=== PATIENT | male | born 1960 | race Caucasian/White ===

== ENCOUNTER 2020-11-15 12:46 | Emergency (ER) | payer OTHER, SELFPAY ==
--- NOTE | ~2020-11-15 | XR_ITS ---
EXAMINATION: XR KNEE, RIGHT CLINICAL INFORMATION: Injury. Pain. COMPARISON: Previous x-ray July 2015 TECHNIQUE: Four views of the right knee. FINDINGS: Bones and soft tissues are normal. No fracture or joint effusion. Alignment is anatomic. Joint spaces are well maintained. No abnormal soft tissue calcification. XR/XR knee RT 4V IMPRESSION: Normal right knee.
[2020-11-15 14:37] VITALS: BP 161/84; PULSE 60; RESP 18; TEMP 37.1; O2SAT 96; BMI 34.0
--- NOTE | 2020-11-15 15:26 | ED.LOWEXIN ---
HPI - Extremity Injury (Lower) General Chief Complaint: Extremity Injury, Lower Stated Complaint: rt knee pain,inj Time Seen by Provider: 11/15/20 14:47 Source: patient Mode of arrival: ambulatory Limitations: no limitations History of Present Illness HPI Narrative: 60yo male with past medical history of arthritis, gout, HTN here with complaints of right knee pain s/p injury one week ago while using stationary bike. patient tells me after he got off the bike he started to have pain over the inner side of his knee which is worsened with weight-bearing and standing on his feet for a long period of time. No previous injury. Tells me does have arthritis the same knee. No erythema, warmth, swelling, fevers or chills. Related Data Allergies Allergy/AdvReac Type Severity Reaction Status Date / Time No Known Allergies Allergy Mild NOT Verified 11/15/20 14:36 APPLICABLE Review of Systems Review of Systems: Yes all other systems are reviewed and are negative Constitutional: Constitutional: Reports no additional constitutional complaints, Denies body ache(s), Denies chills, Denies fever(s), Denies headache(s) and Denies weakness Eyes: Eyes: Reports no additional eye complaints and Denies change in vision ENT: Reports system reviewed and no additional complaints, except as documented, Denies dizziness, Denies headache(s), Denies nasal congestion, Denies nasal discharge and Denies neck pain Cardiovascular: Cardiovascular: Reports no additional cardiovascular complaints, Denies chest pain, Denies leg edema and Denies dyspnea Respiratory: Respiratory: Reports no additional respiratory complaints, Denies cough and Denies dyspnea Gastrointestinal: Gastrointestinal: Reports no additional gastrointestinal complaints, Denies abdominal pain, Denies diarrhea, Denies nausea and Denies vomiting Genitourinary: Genitourinary: Denies urinary incontinence Musculoskeletal: Musculoskeletal: Reports no additional musculoskeletal complaints, Denies back pain, Reports arthralgias, Denies neck pain, Denies numbness and Denies tingling Integumentary/Breasts: Skin/Breast: Reports system reviewed and no additional complaints, except as docu and Denies rash Neurologic: Reports system reviewed and no additional complaints, except as documented, Denies Abnormal speech present, Denies dizziness, Denies headache(s), Denies numbness, Denies tingling and Denies weakness [facility] Past Medical History Attestation statement: The following information was validated with the patient. Source: old records reviewed and nursing notes reviewed Medical History Arthritis Gout HTN (hypertension) Social History Social History Advance Directives: No Advance Directives Information Provided: No Physical Exam Vital Signs: Vital Signs: Last Vital Signs Temp 98.7 F 11/15/20 14:37 Pulse 60 11/15/20 14:37 Resp 18 11/15/20 14:37 BP 161/84 H 11/15/20 14:37 Pulse Ox 96 11/15/20 14:37 Body Mass Index 34.0 Const: General: cooperative, healthy appearing, comfortable and no acute distress Orientation/consciousness: patient oriented x3 Limitations: no limitations HENMT: Head: Yes normal to inspection Ears: hearing grossly normal bilaterally General nose exam: Normal external nose present Face and sinus: Yes normal facial exam Mouth: Normal oral and palatal mucosa present Throat: Yes posterior oropharynx normal Eyes: General: appearance normal, both eyes and all related structures Pupils: Equal, round and reactive pupils present Neck: Neck: Yes normal visual inspection Chest: Chest palpation & inspection: normal inspection of the chest Resp: Effort & Inspection: normal respiratory effort Auscultation: clear to auscultation bilaterally Cardio: Rate: regular rate Rhythm: regular rhythm Peripheral pulses: Peripheral pulses 2+ throughout GI: Inspection: Yes normal to inspection Palpation (GI): Soft to palpation and nontender Auscultation: normal bowel sounds Back/Spine/Pelvis: Thoracic/Lumbar Spine: thoracic and lumbar spine normal to inspection Skin: General skin exam: no rashes or lesions noted Neuro: General: patient oriented x3, no focal motor deficits and normal sensation to monofilament Cranial nerves: Yes Equal, round and reactive pupils present Cognition (Neuro): normal cognition Speech: No Abnormal speech present Gait exam (Neuro): Normal gait present Motor exam (neuro): 5/5 motor strength present throughout Extrem: Other: Tenderness over the MCL and joint line. Pain with flexion but able to complete. No problem with full extension. No warmth, erythema or swelling. Pain with valgus stress over the MCL NV intact distally. General: Yes normal to inspection Course Course Course Narrative: 60 yo male here with right knee pain s/p injury on stationary bike. Tenderness of MCL and joint line. Likely MCL sprain. Xrays negative for bony abnormality. Placed in knee immobilizer and given crutches with teaching. Will refer to ortho. Reviewed worrisome signs and symptoms of when to return to the emergency department. Comfortable discharge home. Procedures Procedure Narrative Procedure Narrative: knee immobolizer/crutches given MDM - Extremity Injury (Lower) Medical Records Attestation: I reviewed the patient's medical records. Lab Data Attestation: I reviewed the patient's lab results. Imaging Data knee xray: Attestation: I personally reviewed and interpreted this imaging study as follows: Radiologist's impression: EXAMINATION: XR KNEE, RIGHT CLINICAL INFORMATION: Injury. Pain. COMPARISON: Previous x-ray July 2015 TECHNIQUE: Four views of the right knee. FINDINGS: Bones and soft tissues are normal. No fracture or joint effusion. Alignment is anatomic. Joint spaces are well maintained. No abnormal soft tissue calcification. XR/XR knee RT 4V IMPRESSION: Normal right knee. Discharge Plan Discharge Clinical Impression: Knee sprain Qualifiers: Encounter type: initial encounter Involved ligament of knee: medial collateral ligament Laterality: right Qualified Code(s): S83.411A - Sprain of medial collateral ligament of right knee, initial encounter Patient Disposition: Home, Self-Care Instructions: Knee Sprain (ED) Additional Instructions: Take naproxen or motrin twice daily as discussed Ice, elevation, compression as discussed. Limit weight bearing Follow-up with orthopedics as discussed Referrals: Luis Medina MD [Physician] - 2 days Stand Alone Forms: Work/School Release Interventions: ED Discharge Assessment Last Done: 11/15/20 15:34 Discharge Date/Time: 11/15/20 15:43
== END 2020-11-15 15:43 | disposition home or self-care (01) ==
PROVIDERS: Emergency Provider Emergency Medicine; PCP Physician Assistant
DX: S83.411A Sprain of medial collateral ligament of right knee, initial encounter (principal); X50.3XXA Overexertion from repetitive movements, initial encounter; I10 Essential (primary) hypertension; Y93.A1 Activity, exercise machines primarily for cardiorespiratory conditioning; Y92.019 Unspecified place in single-family (private) house as the place of occurrence of the external cause; Y99.8 Other external cause status
CPT/HCPCS: 73564; 99283

== ENCOUNTER → 2020-11-30 08:00 | Outpatient (BNVA) | payer OTHER, SELFPAY | PROVIDERS: PCP Physician Assistant; Visit Provider Orthopaedic Surgery | DX: S83.241A Other tear of medial meniscus, current injury, right knee, initial encounter (principal) | CPT/HCPCS: 99202 ==

== ENCOUNTER 2023-12-06 15:48 | Emergency (ER) | payer OTHER, SELFPAY ==
--- NOTE | ~2023-12-06 | US_ITS ---
EXAMINATION: US VENOUS ULTRASOUND WITH DOPPLER LOWER EXTREMITY, RIGHT CLINICAL INFORMATION: Edema, pain. COMPARISON: None available. TECHNIQUE: Ultrasound of the deep veins is performed from the hip to the calf with compression sonography and color and pulse Doppler assessment. Spectral analysis with color-flow imaging is performed. FINDINGS: There is normal venous compression and respiratory variation and augmented flow. The visualized common femoral vein, superficial femoral vein, profunda femoral vein, popliteal vein, and the trifurcation region shows no evidence of deep venous thrombosis. There is a 8.2 x 1.8 x 3.1 cm Macias's cyst. If the patient's symptoms persist, followup ultrasound in 5 days 7 days might be of value to exclude proximal propagation from a non-visualized calf vein. US/US venous duplex LE RT IMPRESSION: 1. No DVT demonstrated in the right lower extremity. 2. There is a 8.2 cm Macias's cyst.
[2023-12-06 16:22] LABS: MANUAL DIFF FLAG NO
[2023-12-06 16:24] LABS: Basophils Absolute Auto 0.1 X10*3/uL (0.0-0.2); Basophils Percent Auto 0.4 % (0-2); Eosinophils Absolute Auto 0.1 X10*3/uL (0.0-0.4); Eosinophils Percent Auto 0.6 % (0-4); Hematocrit 50.7 % (42.0-52.0); Hemoglobin 17.4 g/dl (14.0-18.0); Imm Gran Abs Auto 0.05 X10*3/uL (0.00-0.03); Imm Gran Pct Auto 0.4 % (0.0-0.4); Lymphocytes Absolute Auto 1.3 X10*3/uL (1.2-4.9); Lymphocytes Percent Auto 10.5 % (20-40); Mean Corpuscular HGB Conc 34.3 g/dl (31.0-36.0); Mean Corpuscular Hemoglobin 30.9 pg (27.0-33.0); Mean Corpuscular Volume 89.9 fL (80.0-98.0); Mean Platelet Volume 10.1 fL (9.4-12.4); Monocytes Absolute Auto 0.9 X10*3/uL (0.1-1.2); Monocytes Percent Auto 7.5 % (2-11); Neutrophils Percent Auto 80.6 % (45-73); Platelet Count 218 X10*3/uL (160-400); Red Blood Count 5.64 X10*6/uL (4.60-5.80); Red Cell Distribution Width 13.1 % (11.0-16.0); White Blood Count 12.5 X10*3/uL (4.8-10.8)
[2023-12-06 16:32] LABS: Prothrombin Time 12.6 SEC (11.1-13.3)
[2023-12-06 16:34] VITALS: BP 178/84; PULSE 90; RESP 16; TEMP 37.6; O2SAT 94; BMI 35.7
[2023-12-06 16:37] LABS: Alanine Aminotransferase 22 U/L (0-40); Albumin Level 4.1 g/dL (3.5-5.0); Alkaline Phosphatase 79 U/L (39-117); Anion Gap 15 (12-20); Aspartate Amino Transferase 20 U/L (5-37); Bilirubin Total 0.6 mg/dL (0.0-1.0); Blood Urea Nitrogen 19 mg/dL (9-16); Calcium 9.5 mg/dL (8.4-10.2); Carbon Dioxide 21 mmol/L (22-29); Chloride 107 mmol/L (96-108); Estimated Glomerular Filt Rate 51; Glucose Random 148 mg/dL (60-115); Magnesium 1.8 mg/dL (1.6-2.6); Potassium 4.2 mmol/L (3.3-5.1); Sodium 139 mmol/L (135-145); Total Protein 7.5 g/dL (6.5-8.0)
--- NOTE | 2023-12-06 16:40 | ED_ITS ---
HPI - Extremity Problem General Chief complaint: Extremity Problem Stated complaint: right leg swelling Time Seen by Provider: 12/06/23 18:09 Source: patient Mode of arrival: ambulatory Limitations: no limitations History of Present Illness HPI Narrative: 63-year-old male presents to the ER for evaluation of right lower extremity swelling for the last couple of days. He states he was on his feet for several hours for pureed this weekend but does not recall falling or injuring the leg. He noticed some swelling in the right ankle a couple of days ago which has gotten worse, now extends up to the right calf and behind the right knee. He reports pain in the right lateral knee. He has soreness behind the knee. No redness or warmth to the lower extremity. No chest pain or shortness of breath. MD Complaint: extremity pain and extremity swelling Onset (ago): day(s) Pain Consistency: intermittent Location: right and lower extremity Severity scale (1-10): 5 Quality: aching Radiation: proximal Relieving factors: immobilization and rest Exacerbating factors: walking and palpation Associated symptoms: denies other symptoms Related Data Allergies Allergy/AdvReac Type Severity Reaction Status Date / Time No Known Allergies Allergy Mild NOT Verified 12/06/23 16:34 APPLICABLE Review of Systems 2 Review of Systems: Yes all other systems are reviewed and are negative [facility] Past Medical History Medical History Arthritis Gout HTN (hypertension) Social History Social History (Updated 11/30/20 @ 08:12 by Mag Jj, [facility]) Advance Directives: No Advance Directives Information Provided: No Current occupational status: employed Current occupation: [employer] in [employer] Physical Exam 2 Vital Signs: Vital Signs: Last Vital Signs Temp 99.6 F 12/06/23 16:34 Pulse 90 12/06/23 16:34 Resp 16 12/06/23 16:34 BP 178/84 H 12/06/23 16:34 Pulse Ox 94 12/06/23 16:34 O2 Del Method Room Air 12/06/23 16:34 BMI result Body Mass Index 35.7 Appearance: Alert. Oriented X3. No acute distress. HEENT: normal inspection CVS: Normal heart rate and rhythm. Pulses normal. Respiratory: No respiratory distress. Skin: Skin warm and dry. Normal skin color. Normal skin turgor. No rashes. Extremities: Right distal leg with mild lower extremity nonpitting edema involving the ankle to the posterior knee. There is soft tissue tenderness and palpable mass in the popliteal area of the right lower extremity. Normal range of motion of the knee with some tenderness along the lateral joint line. neurovascularly intact distally. No erythema, warmth of the right lower extremity Neuro: Oriented X 3. No motor deficit. No sensory deficit. Steady gait Course Course Course Narrative: This is an RME: Additional HPI, ROS, PE not included below will be deferred to primary provider. 63-year-old male presents with right lower extremity pain, swelling, warmth started 2 days ago worsening. No associated trauma. No history of clots. Not on blood thinners. Plan labs, imaging Medical Decision Making Medical Decision Making [facility] Narrative: 63-year-old male presents to the ER for evaluation of right lower extremity swelling for the last couple of days. He states he was on his feet for several hours for pureed this weekend but does not recall falling or injuring the leg. labs today show a mild leukocytosis of 12.5, which seems to be chronic dating back to 2018. No evidence of acute infection. Ultrasound did not show any evidence of deep vein thrombosis but showed a large Macias's cyst measuring 8 cm. Results discussed with the patient as well as conservative management. Patient placed in Bruno wrap for compression and support. He is stable for discharge home with outpatient follow-up as needed. Differential Diagnosis Differential Diagnoses: The differential diagnosis associated with the presentation includes DVT, PVD, macias's cyst, CHF, muscle injury Lab Data [facility] Lab Attestation statement: I reviewed the patient's lab results. Stable CKD 12/06/23 16:15 12/06/23 16:15 Labs: Lab Results 12/06/23 Range/Units 16:15 WBC 12.5 H (4.8-10.8) X10*3/uL RBC 5.64 (4.60-5.80) X10*6/uL Hgb 17.4 (14.0-18.0) g/dl Hct 50.7 (42.0-52.0) % MCV 89.9 (80.0-98.0) fL MCH 30.9 (27.0-33.0) pg MCHC 34.3 (31.0-36.0) g/dl RDW 13.1 (11.0-16.0) % Plt Count 218 (160-400) X10*3/uL MPV 10.1 (9.4-12.4) fL Immature Gran % (Auto) 0.4 (0.0-0.4) % Neut % (Auto) 80.6 H (45-73) % Lymph % (Auto) 10.5 L (20-40) % Alpine % (Auto) 7.5 (2-11) % Eos % (Auto) 0.6 (0-4) % Baso % (Auto) 0.4 (0-2) % Lymph # (Auto) 1.3 (1.2-4.9) X10*3/uL Alpine # (Auto) 0.9 (0.1-1.2) X10*3/uL Eos # (Auto) 0.1 (0.0-0.4) X10*3/uL Baso # (Auto) 0.1 (0.0-0.2) X10*3/uL Abs Immat Gran (auto) 0.05 H (0.00-0.03) X10*3/uL Absolute Neuts (auto) 10.0 H (2.0-8.3) x10*3/uL Absolute Nucleated RBC 0.000 (0.0-0.012) X10*3/uL Nucleated RBC % (auto) 0.0 (0.0-0.2) /100WBC PT 12.6 (11.1-13.3) SEC INR 1.0 (0.9-1.1) Sodium 139 (135-145) mmol/L Potassium 4.2 (3.3-5.1) mmol/L Chloride 107 (96-108) mmol/L Carbon Dioxide 21 L (22-29) mmol/L Anion Gap 15 (12-20) BUN 19 H (9-16) mg/dL Creatinine 1.41 H (0.5-1.4) mg/dL Estim Creat Clear Calc TNP Estimated GFR 51 Random Glucose 148 H (60-115) mg/dL Calcium 9.5 (8.4-10.2) mg/dL Magnesium 1.8 (1.6-2.6) mg/dL Total Bilirubin 0.6 (0.0-1.0) mg/dL AST 20 (5-37) U/L ALT 22 (0-40) U/L Alkaline Phosphatase 79 (39-117) U/L Total Protein 7.5 (6.5-8.0) g/dL Albumin 4.1 (3.5-5.0) g/dL Independent Interpretation I performed an independent interpretation of an: Ultrasound Interpretation: large fluid collection consistent with a Macias's cyst noted, agree with radiologist's read Radiology Impression Discussion of test interpretation with radiology: I have reviewed the radiologist's reading. Radiologist Impression: US/US venous duplex LE RT IMPRESSION: 1. No DVT demonstrated in the right lower extremity. 2. There is a 8.2 cm Macias's cyst. External Record Review External record reviewed: Outpatient record and Prior outpatient radiology Prescription Management I considered prescription management with: Pain Medication Chronic Conditions Patient?s care impacted by: Other (ckd) cannot use nsaid Critical Care Time Critical Care Time Critical Care Time: No Discharge Plan Discharge Clinical Impression: Macias cyst Qualifiers: Laterality: right Qualified Code(s): M71.21 - Synovial cyst of popliteal space [Maicas], right knee Patient Disposition: Home, Self-Care Instructions: Bakers Cyst (ED) Additional Instructions: Your ultrasound today showed a large Macias's cyst Wear the BRUNO wrap for compression and support Elevate your leg when possible Take over the counter acetaminophen as needed for pain Follow up with your doctor If you develop new or worsening symptoms call 911 or come back to the ER for further evaluation. Referrals: Fransisco Mendez PA [Primary Care Provider] -
[2023-12-06 18:53] VITALS: BP 179/100; PULSE 99; RESP 20; TEMP 37.2; O2SAT 95
== END 2023-12-06 18:54 | disposition home or self-care (01) ==
PROVIDERS: Physician Assistant; Emergency Provider Emergency Medicine; PCP Physician Assistant
DX: M71.21 Synovial cyst of popliteal space [Baker], right knee (principal); R60.0 Localized edema; Z79.899 Other long term (current) drug therapy
CPT/HCPCS: 36415; 80053; 83735; 85025; 85610; 93971; 99282; 99284

== ENCOUNTER 2025-05-22 07:20 | Day surgery (SDC) | payer OTHER, SELFPAY ==
--- OUTSIDE RECORDS SUMMARY | 2025-01-16 07:56 | XMS_ITS | Encounter Summary ---
Author Name [facility] Address [address] [place] [address] Care Team Providers Care Outside Machinist Supervisor Name Role Phone SABINA MAJOR Primary Care Provider Unavailabl e Insurance Providers: All historical and current Section Date Range: From patient's date of to the date document was created. This section includes the names of all active insurance providers for the patient. Insurance Provider Type of Coverage Plan Name Start of Policy Coverage End of Policy Coverage Group Number Member ID Insurance Provider's Telephone Number Policy Suero's Name Patient's Relationship to Policy Suero [facility] Sep 17, 2023 01 [id number] RAIZA BURCH PATIENT Selected Encounter This section includes the information on record at [place] for the Encounter. Date/Time Encounter Type Encounter Description Reason Provider Source Oct 21, 2024 03:30 PM OFFICE O/P EST MOD 30 MIN PRIMARY CARE/MEDICINE ICD-10-CM J01.10 Acute frontal sinusitis, unspecified SABINA MAJOR Phil Encounter Template Text not used by [place] Assessments - Encounter Diagnoses This section includes the primary and secondary diagnoses documented for the Encounter. Date/Time Primary/Secondary Diagnosis Diagnosis Name Provider Source Nov 22, 2024 05:38 PM PRIMARY Acute frontal sinusitis, unspecified SABINA MAJOR Nov 22, 2024 05:38 PM SECONDARY Essential (primary) hypertension SABINA MAJOR Nov 22, 2024 05:38 PM SECONDARY Obesity, unspecified SABINA MAJOR [place] Plan of Treatment: Future Appointments (+ 6 months) and Future Tests (+/- 45 days) The Plan of Treatment section includes future care activities for the [facility] This section includes future appointments and future orders which are active, pending or scheduled. Future Appointments This section includes appointments that were scheduled to occur 6 months from the date of the Encounter, up to a maximum of 20 appointments. The data comes from all [place] treatment facilities. Appointment Date/Time Appointment Type Appointme nt Facility Name Nov 25, 2024 01:00 PM AMBULATORY - NONE [facility] Nov 26, 2024 11:00 AM AMBULATORY - MEDICINE [facility] [place] [facility] Nov 27, 2024 09:15 AM AMBULATORY - NONE [facility] [place] [facility] Dec 09, 2024 01:00 PM AMBULATORY - NONE [facility] Dec 10, 2024 10:30 AM AMBULATORY - [place]ICINE [facility] [place] [facility] Dec 10, 2024 03:40 PM AMBULATORY - NONE [facility] [place] [facility] Dec 16, 2024 01:00 PM AMBULATORY - NONE [facility] Dec 17, 2024 11:00 AM AMBULATORY - [facility]ICINE [facility] [place] [facility] Dec 23, 2024 01:00 PM AMBULATORY - NONE [facility] Dec 30, 2024 01:00 PM AMBULATORY - NONE [facility] Jan 06, 2025 01:00 PM AMBULATORY - NONE [facility] Jan 13, 2025 01:00 PM AMBULATORY - NONE [facility] Jan 14, 2025 12:30 PM AMBULATORY - MEDICINE [facility] [place] [facility] January 30, 2025 01:00 PM AMBULATORY - MEDICINE [facility] Mar 17, 2025 02:00 PM AMBULATORY - MEDICINE [facility] [place] [facility] Apr 07, 2025 10:00 AM AMBULATORY - MEDICINE [facility] [place] [facility] Vital Signs: All taken on the encounter date This section contains inpatient and outpatient Vital Signs collected on the date of the Encounter. Date/Time Temperature Pulse Blood Pressure Respiratory Rate SP02 Pain Height Weight Body Mass Index Source Oct 21, 2024 03:55 PM 163/65 [place] Oct 21, 2024 03:55 PM 97.8 81 154/95 19 98 67 260 41 [facility] [place] Encounter Notes: All associated encounter notes This section contains the clinical notes associated to the Encounter. Date/Time Encounter Note(s) Provider Source Nov 27, 2024 03:42 PM ADDENDUM: LOCAL TITLE: Addendum STANDARD TITLE: ADDENDUM DATE OF NOTE: NOV 27, 2024@15:42:39 ENTRY DATE: NOV 27, 2024@15:42:40 AUTHOR: SABINA MAJOR EXP COSIGNER: URGENCY: STATUS: COMPLETED please notify patient of lab results: A1c is 6.4 - still considered borderline diabetes . Recommend low carb diet and weight loss. Kidney function is improved, his GFR is now 50. his vitamin d level is quite low, I think he would benefit from a supplement. He can buy this OTC or I can order one for him. His cholesterol is better - his triglycerides have come way down, so good job with this! /jose/ DEMI FISHER CERTIFIED NURSE PRACTITIONER Signed: 11/27/2024 15:44 Receipt Acknowledged By: 11/28/2024 13:58 /es/ GISELLE NGUYEN RN REGISTERED NURSE --- Original Document --- 10/21/24 NURSE PRACTITIONER OUTPATIENT NOTE: PRIMARY CARE VISIT RAIZA BURCH, is a 64 y/o WHITE MALE [place] who [facility]. TYPE OF VISIT: Face to face HPI: sinus infection - has exacerbated his migraines. Went to Urgent Care 2 weeks ago, was prescribed a nasal spray for sx, which haven't improved. Afebrile. HTN - BP elevated today in clinic. HOme BP this AM 130/70. On Rx x 2. Admits to high salt diet. Denies CP, palpitations, peripheral edema. obesity - BMI 41. Has started working out regularly. Recent labs reviewed and all medications were reconciled during this visit. HISTORY: PERIOD OF SERVICE - [employer] FROM Jul TO Jul COMBAT SERVICE INDICATED: No VITAL SIGNS: Temperature 97.8 F [36.6 C] (10/21/2024 15:55) Blood Pressure 163/65 (10/21/2024 15:55) Pulse 81 (10/21/2024 15:55) Respiration 19 (10/21/2024 15:55) Pain 0 (10/03/2022 13:20) BMI BMI: 40.8 Weight 260 lb [117.93 kg] (10/21/2024 15:55) Pulse Oximetry 98% (10/21/2024 15:55) REVIEW OF SYSTEMS: see HPI PHYSICAL EXAMINATION: General: Well-appearing in no obvious distress. Morbidly obese. Mental Status: Alert and oriented x4. Head: Maxillary and frontal sinus pressure with palpation Eyes: PERRL. EOMI. Anicteric sclerae. ENT: TM and ear canals normal bilaterally. Clear, thick nasal discharge, nasal congestion. Moist oral mucosa. Posterior pharynx unremarkable. Neck: Supple. No lymphadenopathy. Thyroid unremarkable. Lungs: CTAB. Normal chest excursion. Eupneic respirations. CV: Heart tones S1, S2. RRR. No M/G/R. No peripheral edema. GI: Abdomen is soft and nontender. Psych: Normal mood and affect. Normal judgment. Cooperative with exam, follows commands. ALLERGIES: Patient has answered [facility] - see end of note PREVENTIVE MEDICINE GOALS Follow Up [facility] Referral DUE NOW Influenza Immunization DUE NOW Medication Reconciliation DUE NOW (Optional) Whole Health Documentation DUE NOW ASSESSMENT/PLAN: Active problems - Computerized Problem List is the source for the followin. sinusitis - start Augmentin BID, continue nasal spray. Stay well hydrated. 2. Obesity - BMI 41. Has multiple comorbid conditions. Referrals made to senior automation engineer, [facility] program and CPP to discuss medication options. Continue with exercise program. 3. Benign essential hypertension - instructed to monitor BP at home daily and keep a log. f/u with RN in 2 weeks to review; BP goal < 140/80. Continue amlodipine and lisinopril at current doses for now. Reduce salt intake. Continue with exercise program. FOLLOW UP: Return to clinic as noted below and/or sooner PRN UPCOMING APPOINTMENTS: 12/10/2024 15:40 COM [facility] S[facility]N No barriers noted; patient understands and agrees to current treatment plan. If patient has any questions, concerns or changes in current health status he/she will call or come [facility]. HM: Medication Reconciliation: Outpatient: Has the patient been taking medications as documented in the EMLR? YES: The patient has been taking medications as documented in the EMLR. Essential Medication List for Review used to complete this medication reconciliation. INCLUDED IN THIS LIST: Alphabetical list of active outpatient prescriptions dispensed from this [place] (local) and dispensed from another [place] or [facility] facility (remote) as well as inpatient orders (local, pending and active), local clinic medications, locally documented non-VA medications, and local prescriptions that have or been discontinued in the past 90 days. - All changes in medications, including all non-VA/Herbal/OTC medications were entered into CPRS. - If there were any medications the patient should no longer take, they were discontinued. - The patient/caregiver was instructed to update this list, discard old lists, and take this list to the next appointment, whether with a [facility] or non-VA provider. /jose/ DEMI FISHER CERTIFIED NURSE PRACTITIONER Signed: 11/22/2024 17:37 11/28/2024 ADDENDUM STATUS: UNSIGNED You may not VIEW this UNSIGNED Addendum. SABINA MAJOR Oct 21, 2024 04:01 PM PRIMARY CARE NURSE PRACTITIONER OUTPATIENT NOTE: LOCAL TITLE: NURSE PRACTITIONER OUTPATIENT NOTE STANDARD TITLE: PRIMARY CARE NURSE PRACTITIONER OUTPATIENT NOTE DATE OF NOTE: OCT 21, 2024@16:01 ENTRY DATE: OCT 21, 2024@16:01:58 AUTHOR: SABINA MAJOR EXP COSIGNER: URGENCY: STATUS: COMPLETED NURSE PRACTITIONER OUTPATIENT NOTE Has ADDENDA PRIMARY CARE VISIT RAIZA BURCH, is a 64 y/o WHITE MALE [place] who presents today at the [facility]. TYPE OF VISIT: Face to face HPI: sinus infection - has exacerbated his migraines. Went to Urgent Care 2 weeks ago, was prescribed a nasal spray for sx, which haven't improved. Afebrile. HTN - BP elevated today in clinic. HOme BP this AM 130/70. On Rx x 2. Admits to high salt diet. Denies CP, palpitations, peripheral edema. obesity - BMI 41. Has started working out regularly. Recent labs reviewed and all medications were reconciled during this visit. HISTORY: PERIOD OF SERVICE - [employer] FROM Jul TO Jul COMBAT SERVICE INDICATED: No VITAL SIGNS: Temperature 97.8 F [36.6 C] (10/21/2024 15:55) Blood Pressure 163/65 (10/21/2024 15:55) Pulse 81 (10/21/2024 15:55) Respiration 19 (10/21/2024 15:55) Pain 0 (10/03/2022 13:20) BMI BMI: 40.8 Weight 260 lb [117.93 kg] (10/21/2024 15:55) Pulse Oximetry 98% (10/21/2024 15:55) REVIEW OF SYSTEMS: see HPI PHYSICAL EXAMINATION: General: Well-appearing in no obvious distress. Morbidly obese. Mental Status: Alert and oriented x4. Head: Maxillary and frontal sinus pressure with palpation Eyes: PERRL. EOMI. Anicteric sclerae. ENT: TM and ear canals normal bilaterally. Clear, thick nasal discharge, nasal congestion. Moist oral mucosa. Posterior pharynx unremarkable. Neck: Supple. No lymphadenopathy. Thyroid unremarkable. Lungs: CTAB. Normal chest excursion. Eupneic respirations. CV: Heart tones S1, S2. RRR. No M/G/R. No peripheral edema. GI: Abdomen is soft and nontender. Psych: Normal mood and affect. Normal judgment. Cooperative with exam, follows commands. ALLERGIES: Patient has answered [facility] - see end of note PREVENTIVE MEDICINE GOALS Follow Up Colonoscopy January 18 Home Telehealth ([facility]) Referral DUE NOW Influenza Immunization DUE NOW Medication Reconciliation DUE NOW (Optional) Whole Health Documentation DUE NOW ASSESSMENT/PLAN: Active problems - Computerized Problem List is the source for the followin. sinusitis - start Augmentin BID, continue nasal spray. Stay well hydrated. 2. Obesity - BMI 41. Has multiple comorbid conditions. Referrals made to senior automation engineer, [facility] program and CPP to discuss medication options. Continue with exercise program. 3. Benign essential hypertension - instructed to monitor BP at home daily and keep a log. f/u with RN in 2 weeks to review; BP goal < 140/80. Continue amlodipine and lisinopril at current doses for now. Reduce salt intake. Continue with exercise program. FOLLOW UP: Return to clinic as noted below and/or sooner PRN UPCOMING APPOINTMENTS: 12/10/2024 15:40 COM CARE-[facility] No barriers noted; patient understands and agrees to current treatment plan. If patient has any questions, concerns or changes in current health status he/she will call or come [facility] to the [facility]. HM: Medication Reconciliation: Outpatient: Has the patient been taking medications as documented in the EMLR? YES: The patient has been taking medications as documented in the EMLR. Essential Medication List for Review used to complete this medication reconciliation. INCLUDED IN THIS LIST: Alphabetical list of active outpatient prescriptions dispensed from this [facility] (local) and dispensed from another [facility] or [facility] facility (remote) as well as inpatient orders (local, pending and active), local clinic medications, locally documented non-VA medications, and local prescriptions that have or been discontinued in the past 90 days. - All changes in medications, including all non-VA/Herbal/OTC medications were entered into CPRS. - If there were any medications the patient should no longer take, they were discontinued. - The patient/caregiver was instructed to update this list, discard old lists, and take this list to the next appointment, whether with a [facility] or non-VA provider. /DEMI Rosas CERTIFIED NURSE PRACTITIONER Signed: 11/22/2024 17:37 11/27/2024 ADDENDUM STATUS: COMPLETED please notify patient of lab results: A1c is 6.4 - still considered borderline diabetes . Recommend low carb diet and weight loss. Kidney function is improved, his GFR is now 50. his vitamin d level is quite low, I think he would benefit from a supplement. He can buy this OTC or I can order one for him. His cholesterol is better - his triglycerides have come way down, so good job with this! /DEMI Rosas CERTIFIED NURSE PRACTITIONER Signed: 11/27/2024 15:44 Receipt Acknowledged By: 11/28/2024 13:58 /javy NGUYEN RN REGISTERED NURSE 11/28/2024 ADDENDUM STATUS: COMPLETED Called and left a detailed voicemail message for the forwarding PCP's message. is to call back if he has any other questions or concerns. /javy NGUYEN RN REGISTERED NURSE Signed: 11/28/2024 13:59 SABINA MAJOR [place]
--- OUTSIDE RECORDS SUMMARY | 2025-01-16 07:57 | XMS_ITS | Encounter Summary ---
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 Date/Time Encounter Type Encounter Description Reason Provider Source Dec 10, 2024 10:30 AM MTMS BY PHARM ADDL 15 MIN CLINICAL PHARMACY ICD-10-CM E78.2 Mixed hyperlipidemia GEOFFREY PAGAN Phil Encounter Template Text not used by [place] Assessments - Encounter Diagnoses This section includes the primary and secondary diagnoses documented for the Encounter. Date/Time Primary/Secondary Diagnosis Diagnosis Name Provider Source Dec 10, 2024 11:05 AM PRIMARY Mixed hyperlipidemia MANISH PAGAN NORMAN Dec 10, 2024 11:05 AM SECONDARY Obesity, unspecified MANISH PAGAN WEBSTER Plan of Treatment: Future Appointments (+ 6 months) and Future Tests (+/- 45 days) The Plan of Treatment section includes future care activities for the patient from all [place] [facility] This section includes future appointments and future orders which are active, pending or scheduled. Future Appointments This section includes appointments that were scheduled to occur 6 months from the date of the Encounter, up to a maximum of 20 appointments. The data comes from all [place] treatment facilities. Appointment Date/Time Appointment Type Appointme nt Facility Name Dec 16, 2024 01:00 PM AMBULATORY - NONE [facility] Dec 17, 2024 11:00 AM AMBULATORY - [place]ICINE [place] [facility] [place] [facility] Dec 23, 2024 01:00 PM AMBULATORY - NONE [facility] Dec 30, 2024 01:00 PM AMBULATORY - NONE [facility] Jan 06, 2025 01:00 PM AMBULATORY - NONE [facility] Jan 13, 2025 01:00 PM AMBULATORY - NONE [facility] Jan 14, 2025 12:30 PM AMBULATORY - [place]ICINE [place] [facility] [place] [facility] January 30, 2025 01:00 PM AMBULATORY - MEDICINE [facility] Mar 17, 2025 02:00 PM AMBULATORY - [place]ICINE [place] [facility] [place] [facility] Apr 07, 2025 10:00 AM AMBULATORY - [place]ICINE [place] [facility] [place] [facility] Active, Pending, and Scheduled Orders This section includes a listing of several types of active, pending, and scheduled orders, including clinic medications orders, diagnostic test orders, procedure orders and consult orders; where the start date of the order is 45 days before the date of the Encounter or 45 days after the date of theEncounter. The data comes from all [facility]. Test Date/Time Test Type Test Details Facility Name Dec 10, 2024 12:21 PM Consult Order OPTOMETRY/ [facility] OUTPT Cons Market Development Analyst's Choice [facility] [place] [facility] Lab Results: +/- 30 days of the encounter This section includes the Chemistry and Hematology Lab Results on record with [place] for the patient. Radiology Reports and Pathology Reports are provided separately, in subsequent sections. Lab Results This section contains the Chemistry/Hematology Results that were resulted 30 days before or 30 daysafter the date of the Encounter. Date/Time Source Result Type Result - Unit Interpretation Reference Range Specimen Type Comment Nov 27, 2024 09:42 AM [facility] LIPID PANEL FASTING SERUM Specimen Ty pe: SERUM No comment entered. Ordering Provider: SABINA MAJOR Report Released Date/Time: Oct 23, 2024 06:26 PM Reporting [facility]: [facility] [address] [address] Performing Lab: [facility] [address] [address] CHOLESTEROL 134 mg/dL TRIGLYCERIDE 205 mg/dL H 0-150 LDL calculated 63 mg/dL 0-129 CHOL/HDL 4.5 HDL CHOLESTEROL 30 mg/dL L 40-60 Nov 27, 2024 09:42 AM [facility] VITAMIN D (25-OH) SERUM Specimen Type : SERUM No comment entered. Ordering Provider: SABINA MAJOR Report Released Date/Time: Oct 23, 2024 06:26 PM Reporting [facility]: [facility] [address] [address] Performing Lab: [facility] [address] [address] VITAMIN D (25-OH) 13 ng/mL L 20-50 Nov 27, 2024 09:42 AM [place] FERRITIN SERUM Sp ecimen Type: SERUM No comment entered. Ordering Provider: SABINA MAJOR Report Released Date/Time: Oct 23, 2024 06:26 PM Reporting Lab: [facility] [address] [address] Performing [facility] [address] FERRITIN 243 ng/mL 20-300 Nov 27, 2024 09:42 AM [facility] IRON & TIBC PANEL SERUM Specimen Type : SERUM No comment entered. Ordering Provider: SABINA MAJOR Report Released Date/Time: Oct 23, 2024 06:26 PM Reporting Lab: [facility] [address] [address] Performing Lab: [facility] [address] [address] TIBC 372 ug/dL 204-475 IRON 83 ug/dL 40-160 Transferrin Saturation 22.3 20.0-50.0 Transferrin (TRF) 282 mg/dL 200-360 Nov 27, 2024 09:42 AM [facility] CBC BLOOD Sp ecimen Type: BLOOD No comment entered. Ordering Provider: SABINA MAJOR Report Released Date/Time: Oct 23, 2024 06:26 PM Reporting Lab: [facility] [address] [facility] [address] Performing Lab: [address] [address] WBC 8.24 10*3/uL 4.50-11.00 RBC 5.33 10*6/uL 4.23-5.66 HGB 17.0 g/dL 12.8-17 HCT 49.8 39.2-50.4 MCV 93.4 fL 82-99 MCHC 34.1 g/dL 30.8-35.1 PLT 213 10*3/uL 140-360 RDW-CV 13.1 12.0-16.0 MCH 31.9 pg 26.2-32.6 Nov 27, 2024 09:42 AM [facility] HEMOGLOBIN A1C PANEL BLOOD Specimen T ype: BLOOD Comment: Values obtained from A1C measurements can vary. For atypical A1C assays, a reported value of 7.0 could actually be between 6.72 and 7.28 if measured by a reference method. A reported value of 9.0 could actually be between 8.73 and 9.27. Ref: http://www.ngsp.org/CAPdata.asp Ordering Provider: SABINA MAJOR Report Released Date/Time: Oct 23, 2024 06:26 PM Reporting Lab: [facility] [address] [facility] [address] Performing Lab: [address] [address] HEMOGLOBIN A1C 6.4 H 4.0-5.6 Nov 27, 2024 09:42 AM [facility] TSH SERUM Sp ecimen Type: SERUM No comment entered. Ordering Provider: SABINA MAJOR Report Released Date/Time: Oct 23, 2024 06:26 PM Reporting Lab: [facility] [address] [facility] [address] Performing Lab: [facility] [address] [address] TSH 2.44 u[IU]/mL 0.35-5.00 Nov 27, 2024 09:42 AM [facility] MICROALBUMIN CREATININE RATIO PANEL URINE Specimen Type: URINE No comment entered. Ordering Provider: SABINA MAJOR Report Released Date/Time: Oct 23, 2024 06:26 PM Reporting Lab: [facility] [address] [address] Performing Lab: [address] [address] MICROALBUMIN/CREATININE RATIO 528.6 mg/g H 0-29.9 MICROALBUMIN,QUANTITATIVE 76.5 mg/dL RR UNAVAIL CREATININE URINE 144.73 mg/dL Nov 27, 2024 09:42 AM [facility] BASIC METABOLIC PANEL (fasting) SERUM Specimen Type: SERUM No comment entered. Ordering Provider: SABINA MAJOR Report Released Date/Time: Oct 23, 2024 06:26 PM Reporting Lab: [address] [address] Performing Lab: [address] [address] UREA NITROGEN 24 mg/dL 7-25 GLUCOSE 104 mg/dL H 65-100 SODIUM 139 mmol/L 135-145 POTASSIUM 4.7 mmol/L 3.5-5.0 CHLORIDE 105 mmol/L 100-110 CO2 23 meq/L 20-30 CALCIUM 10.2 mg/dL 8.5-10.2 CREATININE, Serum 1.54 mg/dL H 0.50-1.40 eGFR(CKD-EPI 2020) 50 mL/min L >60 Nov 27, 2024 09:42 AM [facility] LIVER FUNCTION SERUM Specimen Type: SERUM No comment entered. Ordering Provider: SABINA MAJOR Report Released Date/Time: Oct 23, 2024 06:26 PM Reporting Lab: [address] [address] Performing Lab: [address] [place] [address] PROTEIN,TOTAL 7.9 g/dL 6.0-8.3 ALBUMIN 4.2 g/dL 3.5-5.0 ALKALINE PHOSPHATASE 75 U/L 40-150 AST 27 U/L 5-34 ALT 43 U/L BILIRUBIN, TOTAL 0.5 mg/dL 0.2-1.2 Encounter Notes: All associated encounter notes This section contains the clinical notes associated to the Encounter. Date/Time Encounter Note(s) Provider Source Dec 10, 2024 10:37 AM PHARMACY CONSULT: LOCAL TITLE: CONSULT REPORT/PHARMACY STANDARD TITLE: PHARMACY CONSULT DATE OF NOTE: DEC 10, 2024@10:37 ENTRY DATE: DEC 10, 2024@10:38:05 AUTHOR: MARILU PAGAN COSIGNER: URGENCY: STATUS: COMPLETED Time Spent: 45 Minutes Visit Type: f2f Patient referred by pcp for consideration of weight management medications. --------- BMI: 37.6 Most recent BP: 163/65 (10/21/2024 15:55) Subjective: Pt is a very nice who is here to assistance w/ Pre-DM and Obesity. 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 He is a prostate cancer survivor. His kidny function has improved - see pcp notes; pt has IgA disese. Pt has strong FHX of diabetes - mother and sister have it. He attended session 1 on 11/25, and 1 session on 12/09 - 2 weeks so far of the MOVE sessions. Per pcp notes: 11/27/2024 ADDENDUM STATUS: COMPLETED please notify patient [...] way down, so good job with this! 3 metabolic conditions present: - HTN - hyperlipidemia - ostoearthritis --------- PMH: Code Description R73.03 Prediabetes ([facility] [id number]) M71.20 Synovial cyst of knee ([facility] [id number]) H93.19 Tinnitus ([facility] [id number]) H91.93 Bilateral hearing loss ([facility] [id number]) K42.9 Umbilical hernia ([facility] [id number]) M10.9 Gout ([facility] [id number]) H26.9 Cataract ([facility] [id number]) E66.9 Obesity ([facility] [id number]) R69. Family medical history ([facility] [id number]) E78.2 Mixed hyperlipidaemia ([facility] [id number]) Z12.11 Screening for malignant neoplasm of colon done ([facility] [id number]) Z85.46 History of malignant neoplasm of prostate ([facility] [id number]) N14.4 Nephropathy ([facility] [id number]) I10. Benign essential hypertension ([facility] [id number]) ALLERGIES/ADRs: Patient has answered NKA HTN: amlodopin lisinoproil --------- Reviewed chart and noted the following: [x ] Patient has confounding comorbidities of: -HTN, DM, KAYLEIGH, dyslipidemia, metabolic syndrome, OA, FIGUEROA [ ] EtOH and tobacco use [ ] Patient desiring oral medication Active Outpatient Medications (including Supplies): Issue Date Status Last Fill Active Outpatient Medications Refills Expiration 1) ALLOPURINOL 300MG TAB Qty: 45 for 90 days ACTIVE Issue: 04/03/24 Sig: TAKE ONE-HALF TABLET BY MOUTH ONCE Refills: 1 Last : 09/29/24 DAILY Expr : 04/04/25 Indication: FOR GOUT 2) AMLODIPINE BESYLATE 5MG TAB Qty: 90 for 90 ACTIVE Issue: 04/03/24 days Sig: TAKE ONE TABLET BY MOUTH ONCE Refills: 1 Last : 09/29/24 DAILY FOR BLOOD PRESSURE/HEART, DO NOT TAKE Expr : 04/04/25 WITH GRAPEFRUIT JUICE Indication: FOR HIGH BLOOD PRESSURE 3) LISINOPRIL 10MG TAB Qty: 90 for 90 days Sig: ACTIVE Issue: 04/03/24 TAKE ONE TABLET BY MOUTH ONCE DAILY TO Refills: 1 Last : 09/29/24 CONTROL BLOOD PRESSURE Expr : 04/04/25 Indication: FOR HIGH BLOOD PRESSURE 4) SIMVASTATIN 40MG TAB Qty: 45 for 90 days ACTIVE Issue: 04/03/24 Sig: TAKE ONE-HALF TABLET BY MOUTH AT Refills: 1 Last : 09/29/24 BEDTIME FOR CHOLESTEROL Expr : 04/04/25 Indication: FOR HIGH CHOLESTEROL 5) SODIUM BICARBONATE 325MG TAB Qty: 270 for 90 ACTIVE Issue: 04/03/24 days Sig: TAKE ONE TABLET BY MOUTH THREE Refills: 2 Last : 09/29/24 TIMES A DAY Expr : 04/04/25 Indication: KIDNEY FUNCTION PERTINENT LABS: ---- GENERAL CHEMISTRY ---- SERUM Mar Aug 11 Reference 2024 2023 09:42 13:16 Units Ranges GLUCOSE 104 H 102 H mg/dL 65 - 100 BUN 24 22 mg/dL 7 - 25 CREATININE 1.54 H 1.66 H mg/dL .5 - 1.4 eGFR(IDMS) Ref: >=60 CREAT mg/dL .5 - 1.5 eGFR See Eval Ref: See Eval Sodium 139 141 mmol/L 135 - 145 K+/Pot 4.7 4.3 mmol/L 3.5 - 5 CL 105 108 mmol/L 100 - 110 CO2 23 21 mEq/L 20 - 30 CA 10.2 mg/dL 8.5 - 10.2 UricAci mg/dL 3.5 - 7.2 NH3/Amm PO4 mg/dL 2.5 - 5 T. PROT 7.9 7.4 g/dL 6 - 8.3 ALBUMIN 4.2 4.0 g/dL 3.5 - 5 T BILI 0.5 0.4 mg/dL .2 - 1.2 D. BILI mg/dL 0 - .5 AST 27 22 U/L 5 - 34 ALT 43 30 U/L <6 - 55 GGT U/L 10 - 65 ALK ZEKE 75 82 U/L 40 - 150 AMYLASE U/L 25 - 125 MAG mg/dL 1.6 - 2.6 ACETONE Ref: Neg T3 Total ng/dL 35 - 193 ---- LIPID PANEL ---- SERUM Nov 27 Aug 11 Reference 2024 2023 09:42 13:16 Units Ranges CHOL 134 200 H mg/dL <7 - 199 TRIG 205 H 403 H mg/dL 0 - 150 HDL 30 L 40 mg/dL 40 - 60 LDL-d 105 mg/dL <10 - 120 LDL 63 Reflex to dLDL mg/dL0 - 129 CHO/HDL 4.5 5.0 Comments: d h ---- HEMOGLOBIN A1C ---- BLOOD Nov 27 Aug 11 Reference 2024 2023 09:42 13:16 Units Ranges HGB-A1c 6.4 H 6.1 H % 4 - 5.6 Patient must meet the following criteria to be eligible for weight loss medication management at [facility]: [x ] Verifiable participation in a comprehensive lifestyle intervention that targets all three aspects of weight management: diet, physical activity, behavioral changes (i.e. MOVE program, Marcela, weight watchers) [x ] BMI is greater than or equal to 30 kg/m2 OR BMI is greater than or equal to 27 kg/m2 with at least one weight-related comorbidity [ ] Medication regimen has been reviewed to identify and discontinue medications associated with weight gain when clinically safe and appropriate Medications Associated with Weight Gain: ( ) anticonvulsants: ( ) antidepressants ( ) antipyschotics ( ) beta-blockers: ( ) glucocorticoids ( ) long-acting injectable contraceptives ( ) sulfonylureas ( ) insulin ( ) thiazolidinediones Common Exclusion Criteria: [ ] [ ] Concurrent use of another medication FDA approved for weight loss Review of Data, Drug Interactions, PBM Criteria for Use (CFU) and National PBM Guidance on Selection of a Weight Management Medication: 1. Bupropion/Naltrexone (Contrave): Exclusion criteria: [ ] Uncontrolled hypertension [ ] History of seizure disorder, bulimia, or anorexia nervosa [ ] Concurrent opioid use or use of opioids within the last 7 to 10 days [ ] Undergoing abrupt discontinuation of alcohol, benzodiazepines, barbiturates, and antiepileptic drugs [ ] Concurrent use of another form of naltrexone and/or bupropion [ ] Concurrent use or use of a monoamine oxidase inhibitor in the past 14 days [ ] Concurrent use of a CYP2B6 inducer (e.g., ritonavir, efavirenz, phenobarbital, phenytoin, etc.) [ ] End stage renal disease [ ] Severe hepatic impairment [ ] Major depressive disorder especially in patients 24 years of age or younger (unless a mental health consultation supports benefits of naltrexone/bupropion in patients at risk for suicidal thoughts or behaviors) Additional considerations: - may be appropriate 2. Phentermine/Topiramate (Qsymia): Exclusion criteria: [ ] Glaucoma [ ] Hyperthyroidism [ ] Recent cardiac or cerebrovascular event (within past 6 months) [ ] Unstable angina [ ] End stage renal disease on dialysis [ ] Severe hepatic impairment (Child-Caldera Class C) [ ] History of cholelithiasis (within the past 6 months) [ ] History of nephrolithiasis [ ] Patient has history of suicidal attempts or active suicidal ideation (unless mental health consultation supports benefit of phentermine/ topiramate in patient with history of suicide attempts or recent suicidal ideation) [ ] Use of a monoamine oxidase inhibitor within the past 14 days [ ] Concomitant use of an oral carbonic anhydrase inhibitor [ ] Prescribed topiramate for another condition (e.g., seizures, migraine headache) where the addition of phentermine/topiramate would exceed a total dose of 400 mg topiramate per day 3. Orlistat Exclusion criteria: [ ] Chronic malabsorption syndrome or chronic diarrhea [ ] History of cholestasis, hyperoxaluria or calcium oxalate nephrolithiasis 5. Semaglutide (Wegovy) Exclusion criteria: [ ] 1 Type 1 diabetes [ ] Personal or family history of medullary thyroid carcinoma or with Multiple Endocrine Neoplasia syndrome type 2 [ ] Severe gastrointestinal dysmotility, including gastroparesis [ ] History of pancreatitis (does not pertain to patients for whom the cause of pancreatitis is known and no longer presents a risk) [ ] The patient has a history of suicidal attempts or active suicidal ideation (unless a mental health consultation supports benefits of semaglutide in a patient with a history of suicide attempts or recent suicidal ideation) Additional inclusion criteria: The answer to ONE of the following must be fulfilled in order to meet criteria for semaglutide (Wegovy). [ ] Patient has an inadequate response, contraindication or intolerance to at least two [place] National Formulary agents for chronic weight management [ ] Patient with BMI >/= 40 OR BMI 35 to < 40 with a significant or difficult to manage weight-related condition or is unable to achieve weight loss goals required for surgery [ ] Patient has type 2 diabetes treated with semaglutide (Ozempic) AND requires additional weight loss to achieve great than or equal to 5% reduction in initial body weight NUTRITION: started to eat better weeks ago pt eats 1 meal x day and snack B: coffee 3x week; water L: piece of fruit, pretzels D: 6 PM: chicken, turkey, veggies, brown rice snacking: yogurt danish, intermittent fasting fasting in between EXERCISE: 3-4 days x week total of 90 minutes weights 3 x week ETOH: denies Marijuana: socially Smoking: denies Illicits: denies Other hx: no hx of pancreatitis or thyroid cancer; prostate cancer - in remission optometry: non-[facility]: last visit 08/2024 - consult will be placed weight: 239.8 lbs 11/2024 goal: 210-220 lbs SUMMARY OF RECOMMENDATIONS: Reviewed the pre-requisite of total of 4 seesions for the MOVE needed in order to qualify for the pharmacotherapy for weight loss agents. Qsymia or GlP-1 would be appropriate choices. Pt has no hx of suicide attempts or ideations. Will place optometry consult. Reviewed nutrition suggested to move up dinner to earlier hour. f/up in December. next scheduled f/up: 01/14/25 PBM PharmD Pharmacotherapy Rem V12: PHARMACIST INTERVENTIONS: OBESITY/WEIGHT MANAGEMENT Medication monitoring, no dosage change required, continue to monitor and assess /jose/ MARILU PAGAN CLINICAL BID MANAGER Signed: 12/10/2024 12:08 Receipt Acknowledged By: 12/10/2024 13:57 /jose/ DEMI FISHER CERTIFIED NURSE PRACTITIONER MARILU PAGAN
--- OUTSIDE RECORDS SUMMARY | 2025-01-16 07:57 | XMS_ITS | Encounter Summary ---
Author Name [facility] [place] Address [address] [place] [address] Care Team Providers Care Community Development Coordinator Name Role Phone SABINA MAJOR Primary Care [...] Suero's Name Patient's Relationship to Policy Suero [facility] MEDICAID [facility] Sep 17, 2023 01 [id number] RAIZA BURCH PATIENT Selected Encounter This section includes the information on record at [place] for the Encounter. Date/Time Encounter Type Encounter Description Reason Provider Source Jan 13, 2025 01:00 PM [facility] IVNTJ GRP EA ADDL WEIGHT MGMT & MOVE! PROG - GRP ICD-10-CM E66.812 Obesity, class 2 JACQUI PETTIT Encounter Template Text not used by [place] Assessments - Encounter Diagnoses This section includes the primary and secondary diagnoses documented for the Encounter. Date/Time Primary/Secondary Diagnosis Diagnosis Name Provider Source Jan 13, 2025 04:13 PM PRIMARY Obesity, class 2 JACQUI PETTIT ([facility]) Jan 13, 2025 04:13 PM SECONDARY Body mass index [BMI] 36.0-36.9, adult JACQUI PETTIT ([facility]) Plan of Treatment: Future Appointments (+ 6 months) and Future Tests (+/- 45 days) The Plan of Treatment section includes future care activities for the patient from all [place] [facility]. This section includes future appointments and future orders which are active, pending or scheduled. Future Appointments This section includes appointments that were scheduled to occur 6 months from the date of the Encounter, up to a maximum of 20 appointments. The data comes from all [facility] facilities. Appointment Date/Time Appointment Type Appointme nt Facility Name Jan 14, 2025 12:30 PM [facility] January 30, 2025 01:00 PM AMBULATORY - MEDICINE [facility] Mar 17, 2025 02:00 PM AMBULATORY - MEDICINE [facility] Apr 07, 2025 10:00 AM AMBULATORY - MEDICINE [facility] Jun 24, 2025 03:30 PM AMBULATORY - MEDICINE [facility] Active, Pending, and Scheduled Orders This section includes a listing of several types of active, pending, and scheduled orders, including clinic medications orders, diagnostic test orders, procedure orders and consult orders; where the start date of the order is 45 days before the date of the Encounter or 45 days after the date of theEncounter. The data comes from all [facility]. Test Date/Time Test Type Test Details Facility Name Dec 10, 2024 12:21 PM Consult Order OPTOMETRY/ [facility] OUTPT Cons Cutter Operator Tile's Choice [facility] Lab Results: +/- 30 days of the encounter This section includes the Chemistry and Hematology Lab Results on record with [place] for the patient. Radiology Reports and Pathology Reports are provided separately, in subsequent sections. Lab Results This section contains the Chemistry/Hematology Results that were resulted 30 days before or 30 daysafter the date of the Encounter. Date/Time Source Result Type Result - Unit Interpretation Reference Range Specimen Type Comment Jan 14, 2025 01:21 PM [facility] HEMOGLOBIN A1C PANEL BLOOD Specimen Type: BLOOD Comment: Values obtained from A1C measurements can vary. For atypical A1C assays, a reported value of 7.0 could actually be between 6.72 and 7.28 if measured by a reference method. A reported value of 9.0 could actually be between 8.73 and 9.27. Ref: http://www.ngsp .org/CAPdata.as p Ordering Provider: MARILU PAGAN Report Released Date/Time: Jan 14, 2025 12:42 PM Reporting Lab: [address] [id number] Performing Lab: [address] [address] HEMOGLOBIN A1C 5.9 H 4.0-5.6 Jan 14, 2025 01:21 PM [facility] BASIC METABOLIC PANEL (non-fasting) SERUM Spe cimen Type: SERUM No comment entered. Ordering Provider: MARILU PAGAN Report Released Date/Time: Jan 14, 2025 12:42 PM Reporting Lab: [address] [address] Performing Lab: [address] [address] UREA NITROGEN 25 mg/dL 8-26 GLUCOSE 109 mg/dL H 65-100 SODIUM 137 mmol/L 136-145 POTASSIUM 4.8 mmol/L 3.5-5.1 CHLORIDE 103 mmol/L 98-107 CO2 24 meq/L 23-31 CALCIUM 10.0 mg/dL 8.8-10 CREATININE, Serum 1.69 mg/dL H 0.72-1.25 eGFR(CKD-EPI 2020) 44 mL/min L >60 Vital Signs: All taken on the encounter date This section contains inpatient and outpatient Vital Signs collected on the date of the Encounter. Date/Time Temperature Pulse Blood Pressure Respiratory Rate SP02 Pain Height Weight Body Mass Index Source Jan 13, 2025 03:42 PM 227.8 36 GREENFI ELD ([facility]) Encounter Notes: All associated encounter notes This section contains the clinical notes associated to the Encounter. Date/Time Encounter Note(s) Provider Source Jan 13, 2025 01:00 PM MOVE NOTE: LOCAL TITLE: WEIGHT MANAGEMENT/MOVE! OUTPATIENT GROUP NOTE STANDARD TITLE: MOVE NOTE DATE OF NOTE: JAN 13, 2025@13:00 ENTRY DATE: JAN 13, 2025@16:06:18 AUTHOR: JACQUI PETTIT COSIGNER: URGENCY: STATUS: COMPLETED Veterans participated in MOVE! Group Counseling via [facility] on: 01/13/25. The [place] was provided with information on [facility] and has given verbal consent to use group VVC services for their healthcare. The copy of the Group Telehealth Agreement has been mailed to the . The [place]'s location/emergency contact number were confirmed. The Emergency Call Relay Center (E911) was available. The visit was locked for security and privacy. [place] identified with 2 identifiers: [x] Full Name [x] Address Veterans attended the 60-minute MOVE! group session on this date via VVC or by phone. MOVE! is a program designed to provide education about weight management skills to overweight and obese veterans. Veterans submitted their stated weights to staff. The group facilitators began the session by reviewing the previous weeks topic (Menu Planning, Shopping, and Cooking). Participants were asked to share their respective progress toward achieving their respective goals and to share their experiences with keeping a food and physical activity log over the past week. Positive feedback was given to the Veterans for their efforts. Session #8 (Managing Weight-Loss Challenges) was then conducted using the MOVE! Workbook. Facilitators discussed common weight management challenges participants may encounter. Steps to problem solving weight management challenges were reviewed and applied to -specific situations. Finally, challenges related to weight plateaus were discussed with strategies to overcome them. The objectives accomplished at todays session were: 1. Reviewed common weight-loss challenges. 2. Outlined the steps to problem solving. 3. Discussed what a plateau is and how to manage one. Participants were asked to set one healthy eating and physical activity goal to work on this week, continue recording weight daily, to log all food and beverages consumed daily, and to also log all physical activities daily. They were instructed to continue to bring their completed Food and Physical Activity Logs to every session. The next [facility] MOVE! group meeting will be held on 01/20/25 Today's Weight: 227.8 lb Weight Loss of -2.0 lb from last visit Dx: Obesity, Class II E66.812, Z68.36 /es/ Jacqui Pettit, PhD Clinical Psychologist Signed: 01/13/2025 16:17 JACQUI PETTIT ([facility])
--- OUTSIDE RECORDS SUMMARY | 2025-01-16 07:57 | XMS_ITS | Encounter Summary ---
Author Name [facility] [place] [facility] [place] Address [address] [place] [address] Care Team Providers Care Gear Lapping Machine Operator Name Role Phone SABINA MAJOR Primary Care [...] Suero's Name Patient's Relationship to Policy Suero [facility] Sep 17, 2023 01 [id number] RAIZA BURCH PATIENT Selected Encounter This section includes the information on record at [place] for the Encounter. Date/Time Encounter Type Encounter Description Reason Provider Source Jan 14, 2025 12:30 PM [facility] BY PHARM ADDL 15 MIN CLINICAL PHARMACY ICD-10-CM E66.9 Obesity, unspecified MANISH PAGAN Phil Encounter Template Text not used by [place] Assessments - Encounter Diagnoses This section includes the primary and secondary diagnoses documented for the Encounter. Date/Time Primary/Secondary Diagnosis Diagnosis Name Provider Source Jan 14, 2025 01:52 PM PRIMARY Obesity, unspecified MARILU PAGAN [place] Plan of Treatment: Future Appointments (+ 6 months) and Future Tests (+/- 45 days) The Plan of Treatment section includes future care activities for the patient from all [place] [facility]. This section includes future appointments and future orders which are active, pending or scheduled. Future Appointments This section includes appointments that were scheduled to occur 6 months from the date of the Encounter, up to a maximum of 20 appointments. The data comes from all [facility]. Appointment Date/Time Appointment Type Appointme nt Facility Name January 30, 2025 01:00 PM [facility] Mar 17, 2025 02:00 PM AMBULATORY - MEDICINE [facility] Apr 07, 2025 10:00 AM AMBULATORY - MEDIC[facility] Jun 24, 2025 03:30 PM [facility]INE [facility] Active, Pending, and Scheduled Orders This section includes a listing of several types of active, pending, and scheduled orders, including clinic medications orders, diagnostic test orders, procedure orders and consult orders; where the start date of the order is 45 days before the date of the Encounter or 45 days after the date of theEncounter. The data comes from all [facility]. 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 Radiology Reports and Pathology Reports are provided separately, in subsequent sections. Lab Results This section contains the Chemistry/Hematology Results that were resulted 30 days before or 30 daysafter the date of the Encounter. Date/Time Source Result Type Result - Unit Interpretation Reference Range Specimen Type Comment Jan 14, 2025 01:21 PM [facility] HEMOGLOBIN A1C PANEL BLOOD Specimen Type: [...] Jan 14, 2025 12:42 PM Reporting Lab: [facility] [address] [address] Performing Lab: [facility] [address] [address] HEMOGLOBIN A1C 5.9 H 4.0-5.6 Jan 14, 2025 01:21 PM [facility] BASIC METABOLIC PANEL (non-fasting) SERUM Spe cimen Type: SERUM No comment entered. Ordering Provider: MARILU PAGAN Report Released Date/Time: Jan 14, 2025 12:42 PM Reporting Lab: [facility] [address] [address] Performing Lab: [facility] [address] [address] UREA NITROGEN 25 mg/dL 8-26 GLUCOSE 109 mg/dL H 65-100 SODIUM 137 mmol/L 136-145 POTASSIUM 4.8 mmol/L 3.5-5.1 CHLORIDE 103 mmol/L 98-107 CO2 24 meq/L 23-31 CALCIUM 10.0 mg/dL 8.8-10 CREATININE, Serum 1.69 mg/dL H 0.72-1.25 eGFR(CKD-EPI 2020) 44 mL/min L >60 Encounter Notes: All associated encounter notes This section contains the clinical notes associated to the Encounter. Date/Time Encounter Note(s) Provider Source Jan 14, 2025 12:39 PM PHARMACY OUTPATIEN T NOTE: LOCAL TITLE: PHARMACY CLINIC NOTE STANDARD TITLE: PHARMACY OUTPATIENT NOTE DATE OF NOTE: JAN 14, 2025@12:39 ENTRY DATE: JAN 14, 2025@12:40:38 AUTHOR: MARILU PAGAN EXP COSIGNER: URGENCY: STATUS: COMPLETED Time Spent: 30 Minutes Visit Type: f2f Patient referred by pcp for consideration of weight management medications. --------- BMI: 37.6 Most recent BP: 163/65 (10/21/2024 15:55) Subjective: Pt joined the MOVE ! program and is an active participant. Pt has already made significant strides in loosing weight. Pt is very knowledgable regarding exercise. 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 Pt is very busy. Per per: Pt is a very nice who is [...] - HTN - hyperlipidemia - ostoearthritis --------- [facility]: Code Description R73.03 Prediabetes ([facility] [id number]) M71.20 Synovial cyst of knee ([facility] [id number]) H93.19 Tinnitus ([facility] [id number]) H91.93 Bilateral hearing loss ([facility] [id number]) K42.9 Umbilical hernia ([facility] [id number]) M10.9 Gout ([facility] [id number]) H26.9 Cataract ([facility] [id number]) E66.9 Obesity ([facility] [id number]) R69. Family medical history ([facility] [id number]) E78.2 Mixed hyperlipidaemia ([facility] [id number]) Z12.11 Screening for malignant neoplasm of colon done ([facility] [id number]) Z85.46 History of malignant neoplasm of prostate ([facility] [id number]) N14.4 Nephropathy ([facility] [id number]) I10. Benign essential hypertension ([facility] [id number]) ALLERGIES/ADRs: Patient has answered NKA Obesity: - no meds - MOVE! program Hypertension: - amlodopine 5 mg daily - lisinoproil 10 mg daily Hyperlipidemia: - Simvastatin 20 mg daily --------- Reviewed chart and noted the following: [...] eligible [facility]: [x ] Verifiable participation in a comprehensive [...] contraindication or intolerance to at least two [facility] National Formulary agents for chronic weight management [...] chicken, turkey, veggies, brown rice snacking: yogurt [facility], intermittent fasting fasting in between EXERCISE: 3-4 days x week total of 90 minutes weights 3 x week ETOH: denies Marijuana: socially Smoking: denies Illicits: denies Other hx: no hx of pancreatitis or thyroid cancer; prostate cancer - in remission optometry: non-[facility]: last visit 08/2024 - consult will be placed weight: 239.8 lbs 11/2024 weight: 227 lbs 12/2024 goal: 210-220 lbs SUMMARY OF RECOMMENDATIONS: Reviewed the pre-requisite of total of 4 seesions for the MOVE needed in order to qualify for the pharmacotherapy for weight loss agents. Qsymia or GlP-1 would be appropriate choices. Pt has no hx of suicide attempts or ideations. Will place optometry consult. Reviewed nutrition suggested to move up dinner to earlier hour. f/up in December. Date 01/14/25 Pt has lost >10 lbs since enrolling into the MOVE program. Congratulated pt on that achievement. Discussed further pharmacotherapy. At this time pt will hold off on adding any additional medications. 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 Will repeat labs. Call in March to assure pt achieves goal weight. Repeat labs today Pharmacotherapy: Obesity: - no meds - MOVE! program Hypertension: - amlodopine 5 mg daily - lisinoproil 10 mg daily Hyperlipidemia: - Simvastatin 20 mg daily next scheduled f/up: March, - tele EDUCATION -A shared decision-making approach was used in the development of this plan, involving the , clinician, and any caregivers present. The [place] was provided the opportunity express questions or concerns, and the plan was adjusted as needed to address these concerns. -Reviewed with any new medications, changes to the medication list, education, and plan from today's visit. Patient (and/or caregiver) verbalized understanding of the plan, including possible known risks and benefits, and had no additional questions. PBM PharmD Pharmacotherapy Rem V12: PHARMACIST INTERVENTIONS: OBESITY/WEIGHT MANAGEMENT Medication monitoring, no dosage change required, continue to monitor and assess /jose/ MARILU PAGAN CLINICAL RESIDENT PHYSICIAN Signed: 01/15/2025 12:26 Receipt Acknowledged By: 01/15/2025 12:45 /jose/ DEMI FISHER CERTIFIED NURSE PRACTITIONER MARILU PAGANFIELD
--- OUTSIDE RECORDS SUMMARY | 2025-01-16 07:57 | XMS_ITS | Encounter Summary ---
Author Name [facility] [place] Address [address] [place] [address] Care Team Providers Care Guest Relations Receptionist Name Role Phone SABINA MAJOR Primary Care [...] Suero's Name Patient's Relationship to Policy Suero [id number] Sep 17, 2023 01 [id number] RAIZA BURCH PATIENT Selected Encounter This section includes the information on record at [place] for the Encounter. Date/Time Encounter Type Encounter Description Reason Provider Source Dec 23, 2024 01:00 PM [facility] IVNTJ GRP EA ADDL WEIGHT MGMT & MOVE! PROG - GRP ICD-10-CM E66.812 Obesity, class 2 JACQUI PETTIT Encounter Template Text not used by [place] Assessments - Encounter Diagnoses This section includes the primary and secondary diagnoses documented for the Encounter. Date/Time Primary/Secondary Diagnosis Diagnosis Name Provider Source Dec 23, 2024 04:11 PM PRIMARY Obesity, class 2 JACQUI PETTIT ([facility]) Dec 23, 2024 04:11 PM SECONDARY Body mass index [BMI] 37.0-37.9, adult JACQUI PETTIT ([facility]) Plan of Treatment: Future Appointments (+ 6 months) and Future Tests (+/- 45 days) The Plan of Treatment section includes future care activities for the patient from all [place] [facility]. This section includes future appointments and future orders which are active, pending or scheduled. Future Appointments This section includes appointments that were scheduled to occur 6 months from the date of the Encounter, up to a maximum of 20 appointments. The data comes from all [facility]. Appointment Date/Time Appointment Type Appointme nt Facility Name Dec 30, 2024 01:00 PM AMBULATORY - NONE [facility] ([facility]) Jan 06, 2025 01:00 PM AMBULATORY - NONE [facility] ([facility]) Jan 13, 2025 01:00 PM AMBULATORY - NONE [place] [facility] ([facility]) Jan 14, 2025 12:30 PM [facility] [place] [facility] [place] [facility] January 30, 2025 01:00 PM AMBULATORY - MEDICINE [facility] Mar 17, 2025 02:00 PM [facility] [place] [facility] [place] [facility] Apr 07, 2025 10:00 AM AMBULATORY - [place]ICINE [place] [facility] [facility] Jun 24, 2025 03:30 PM AMBULATORY - MEDICINE [facility] [place] [facility] Active, Pending, and Scheduled Orders This section includes a listing of several types of active, pending, and scheduled orders, including clinic medications orders, diagnostic test orders, procedure orders and consult orders; where the start date of the order is 45 days before the date of the Encounter or 45 days after the date of theEncounter. The data comes from all [facility]. Test Date/Time Test Type Test Details Facility Name Dec 10, 2024 12:21 PM Consult Order OPTOMETRY/ [facility] OUTPT Cons Bonding Machine Operator's Choice [place] [facility] [place] [facility] Lab Results: +/- 30 days of the encounter This section includes the Chemistry and Hematology Lab Results on record with [place] for the patient. Radiology Reports and Pathology Reports are provided separately, in subsequent sections. Lab Results This section contains the Chemistry/Hematology Results that were resulted 30 days before or 30 daysafter the date of the Encounter. Date/Time Source Result Type Result - Unit Interpretation Reference Range Specimen Type Comment Jan 14, 2025 01:21 PM [facility] HEMOGLOBIN A1C PANEL BLOOD Specimen Type: BLOOD [...] Jan 14, 2025 12:42 PM Reporting Lab: [address] [address] Performing Lab: [address] [address] HEMOGLOBIN A1C 5.9 H 4.0-5.6 Jan 14, 2025 01:21 PM [facility] BASIC METABOLIC PANEL (non-fasting) SERUM Spe cimen Type: SERUM No comment entered. Ordering Provider: MARILU PAGAN Report Released Date/Time: Jan 14, 2025 12:42 PM Reporting Lab: [address] [address] Performing Lab: [address] [address] [facility]A NITROGEN 25 mg/dL 8-26 GLUCOSE 109 mg/dL H 65-100 SODIUM 137 mmol/L 136-145 POTASSIUM 4.8 mmol/L 3.5-5.1 CHLORIDE 103 mmol/L 98-107 CO2 24 meq/L 23-31 CALCIUM 10.0 mg/dL 8.8-10 CREATININE, Serum 1.69 mg/dL H 0.72-1.25 eGFR(CKD-EPI 2020) 44 mL/min L >60 Nov 27, 2024 09:42 AM [facility] LIPID PANEL FASTING SERUM Specimen Ty pe: SERUM No comment entered. Ordering Provider: SABINA MAJOR Report Released Date/Time: Oct 23, 2024 06:26 PM Reporting Lab: [address] [address] Performing Lab: [facility] [address] [facility] [address] CHOLESTEROL 134 mg/dL TRIGLYCERIDE 205 mg/dL H 0-150 LDL calculated 63 mg/dL 0-129 CHOL/HDL 4.5 HDL CHOLESTEROL 30 mg/dL L 40-60 Nov 27, 2024 09:42 AM [facility] VITAMIN D (25-OH) SERUM Specimen Type : SERUM No comment entered. Ordering Provider: SABINA MAJOR Report Released Date/Time: Oct 23, 2024 06:26 PM Reporting [facility]: [facility] [address] [address] Performing Lab: [address] [address] VITAMIN D (25-OH) 13 ng/mL L 20-50 Nov 27, 2024 09:42 AM [facility] FERRITIN SERUM Sp ecimen Type: SERUM No comment entered. Ordering Provider: SABINA MAJOR Report Released Date/Time: Oct 23, 2024 06:26 PM Reporting [facility]: [facility] [address] [address] Performing Lab: [facility] [address] [address] FERRITIN 243 ng/mL 20-300 Nov 27, 2024 09:42 AM [facility] IRON & TIBC PANEL SERUM Specimen Type : SERUM No comment entered. Ordering Provider: SABINA MAJOR Report Released Date/Time: Oct 23, 2024 06:26 PM Reporting [facility]: [facility] [address] [address] Performing [facility]: [facility] [address] [address] TIBC 372 ug/dL 204-475 IRON 83 ug/dL 40-160 Transferrin Saturation 22.3 20.0-50.0 Transferrin (TRF) 282 mg/dL 200-360 Nov 27, 2024 09:42 AM [facility] CBC BLOOD Sp ecimen Type: BLOOD No comment entered. Ordering Provider: SABINA MAJOR Report Released Date/Time: Oct 23, 2024 06:26 PM Reporting [facility]: [facility] [address] [address] Performing [facility]: [facility] [address] [address] WBC 8.24 10*3/uL 4.50-11.00 RBC 5.33 10*6/uL 4.23-5.66 HGB 17.0 g/dL 12.8-17 HCT 49.8 39.2-50.4 MCV 93.4 fL 82-99 MCHC 34.1 g/dL 30.8-35.1 PLT 213 10*3/uL 140-360 RDW-CV 13.1 12.0-16.0 MCH 31.9 pg 26.2-32.6 Nov 27, 2024 09:42 AM [facility] HEMOGLOBIN A1C PANEL BLOOD Specimen T ype: [...] Oct 23, 2024 06:26 PM Reporting Lab: [address] [address] Performing Lab: [address] [address] HEMOGLOBIN A1C 6.4 H 4.0-5.6 Nov 27, 2024 09:42 AM [facility] TSH SERUM Sp ecimen Type: SERUM No comment entered. Ordering Provider: SABINA MAJOR Report Released Date/Time: Oct 23, 2024 06:26 PM Reporting Lab: [address] [address] Performing Lab: [address] [address] TSH 2.44 u[IU]/mL 0.35-5.00 Nov 27, 2024 09:42 AM [facility] MICROALBUMIN CREATININE RATIO PANEL URINE Specimen Type: URINE No comment entered. Ordering Provider: SABINA MAJOR Report Released Date/Time: Oct 23, 2024 06:26 PM Reporting Lab: [address] [address] Performing Lab: [address] [address] MICROALBUMIN/CREATININE RATIO 528.6 mg/g H 0-29.9 MICROALBUMIN,QUANTITATIVE 76.5 mg/dL RR UNAVAIL CREATININE URINE 144.73 mg/dL Nov 27, 2024 09:42 AM [facility] BASIC METABOLIC PANEL (fasting) SERUM Specimen Type: SERUM No comment entered. Ordering Provider: SABINA MAJOR Report Released Date/Time: Oct 23, 2024 06:26 PM Reporting Lab: [address] [address] Performing Lab: [address] [address] UREA NITROGEN 24 mg/dL 7-25 GLUCOSE 104 mg/dL H 65-100 SODIUM 139 mmol/L 135-145 POTASSIUM 4.7 mmol/L 3.5-5.0 CHLORIDE 105 mmol/L 100-110 CO2 23 meq/L 20-30 CALCIUM 10.2 mg/dL 8.5-10.2 CREATININE, Serum 1.54 mg/dL H 0.50-1.40 eGFR(CKD-EPI 2020) 50 mL/min L >60 Nov 27, 2024 09:42 AM [facility] LIVER FUNCTION SERUM Specimen Type: SERUM No comment entered. Ordering Provider: SABINA MAJOR Report Released Date/Time: Oct 23, 2024 06:26 PM Reporting Lab: [address] [address] Performing Lab: [address] [address] PROTEIN,TOTAL 7.9 g/dL 6.0-8.3 ALBUMIN 4.2 g/dL 3.5-5.0 ALKALINE PHOSPHATASE 75 U/L 40-150 AST 27 U/L 5-34 ALT 43 U/L BILIRUBIN, TOTAL 0.5 mg/dL 0.2-1.2 Vital Signs: All taken on the encounter date This section contains inpatient and outpatient Vital Signs collected on the date of the Encounter. Date/Time Temperature Pulse Blood Pressure Respiratory Rate SP02 Pain Height Weight Body Mass Index Source Dec 23, 2024 03:32 PM 234 37 REENA CASEY ([facility]) Encounter Notes: All associated encounter notes This section contains the clinical notes associated to the Encounter. Date/Time Encounter Note(s) Provider Source Dec 23, 2024 01:00 PM MOVE NOTE: LOCAL TITLE: WEIGHT MANAGEMENT/MOVE! OUTPATIENT GROUP NOTE STANDARD TITLE: MOVE NOTE DATE OF NOTE: DEC 23, 2024@13:00 ENTRY DATE: DEC 23, 2024@15:59:34 AUTHOR: JACQUI PETTIT COSIGNER: URGENCY: STATUS: COMPLETED Veterans participated in MOVE! Group Counseling via VVC on: 12/23/2024. The was provided with information on VVC and has given verbal consent to use group VVC services for their healthcare. The copy of the Group Telehealth Agreement has been mailed to the . The 's location/emergency contact number were confirmed. The Emergency Call Relay Center (E911) was available. The visit was locked for security and privacy. identified with 2 identifiers: [x] Full Name [x] Address Veterans attended the 60-minute MOVE! group session on this date via VVC or phone. MOVE! is a program designed to provide education about weight management skills to overweight and obese veterans. Veterans submitted their stated weights to staff. The group facilitators began the session by reviewing the previous weeks topic (Eat Wisely). Participants were asked to share their respective progress toward achieving their respective goals and to share their experiences with keeping a food and physical activity log over the past week. Positive feedback was given to the Veterans for their efforts. Session #5 (Get Fit for Life) was then conducted using the MOVE! Workbook. Facilitators reviewed the basics of being physically active. Veterans identified the different types of physical activity that interest them that work with their schedule. The 2018 Physical Activity Guidelines for Americans was reviewed, and Veterans compared their current activity with the recommended guidelines. The different measures of intensity and tips to start being active were shared. Veterans were ordered pedometers after the last session. Proper use and the benefits of the pedometer were discussed today, as well as daily step recommendations and how to create personal step goals. The objectives accomplished at todays session were: 1. Helped Veterans identify ways to get active that work for them. 2. Described the benefits of getting active. 3. Taught Veterans how to get fit. 4. Educated Veterans on proper use and benefits of pedometer Additional Materials Provided: Pedometer Participants were asked to set one healthy eating and physical activity goal to work on this week, continue recording weight daily, to log all food and beverages consumed daily, and to also log all physical activities daily. They were instructed to have their completed Food and Physical Activity Logs available every session. The next [facility] MOVE! group meeting will be held on 12/30/24. Today's Weight: 237 lb Weight Loss of -2.8 lb from last visit Dx: Obesity, Class II E66.812, Z68.37 /es/ Jacqui Pettit, PhD Clinical Psychologist Signed: 12/23/2024 16:17 JACQUI PETTIT ([facility])
--- OUTSIDE RECORDS SUMMARY | 2025-01-16 07:57 | XMS_ITS | Encounter Summary ---
Author Name [facility] [facility] [place] Address [address], [place] [address] Care Team Providers Care Stoneworker Name Role Phone SABINA MAJOR Primary Care [...] Suero's Name Patient's Relationship to Policy Suero [facility] MEDICAID [facility] [address] [address] Sep 17, 2023 01 [id number] RAIZA BURCH PATIENT Selected Encounter This section includes the information on record at [place] for the Encounter. Date/Time Encounter Type Encounter Description Reason Provider Source Dec 17, 2024 11:00 AM OFF/OP EST JANUARY X REQ PHY/QHP PRIMARY CARE/MEDICINE ICD-10-CM I10 Essential (primary) hypertension ZAIN NGUYEN Encounter Template Text not used by [place] Assessments - Encounter Diagnoses This section includes the primary and secondary diagnoses documented for the Encounter. Date/Time Primary/Secondary Diagnosis Diagnosis Name Provider Source Dec 17, 2024 11:33 AM PRIMARY Essential (primary) hypertension KIERA NGUYEN NORMAN Plan of Treatment: Future Appointments (+ 6 months) and Future Tests (+/- 45 days) The Plan of Treatment section includes future care activities for the patient from all [place] [facility]. This section includes future appointments and future orders which are active, pending or scheduled. Future Appointments This section includes appointments that were scheduled to occur 6 months from the date of the Encounter, up to a maximum of 20 appointments. The data comes from all [facility]. Appointment Date/Time Appointment Type Appointme nt Facility Name Dec 23, 2024 01:00 PM AMBULATORY - NONE [facility] ([facility]) Dec 30, 2024 01:00 PM AMBULATORY - NONE [place] [facility] ([facility]) Jan 06, 2025 01:00 PM AMBULATORY - NONE [place] [facility] ([facility]) Jan 13, 2025 01:00 PM AMBULATORY - NONE [place] [facility] ([facility]) Jan 14, 2025 12:30 PM [facility] January 30, 2025 01:00 PM AMBULATORY - MEDICINE [facility] Mar 17, 2025 02:00 PM [facility]BUL[facility] Apr 07, 2025 10:00 AM [facility] Active, Pending, and Scheduled Orders This section includes a listing of several types of active, pending, and scheduled orders, including clinic medications orders, diagnostic test orders, procedure orders and consult orders; where the start date of the order is 45 days before the date of the Encounter or 45 days after the date of theEncounter. The data comes from all [facility]. Test Date/Time Test Type Test Details Facility Name Dec 10, 2024 12:21 PM Consult Order OPTOMETRY/ NHM OUTPT Cons Forming Mill Operator's Choice [facility] Lab Results: +/- 30 days of the encounter This section includes the Chemistry and Hematology Lab Results on record with [place] for the patient. Radiology Reports and Pathology Reports are provided separately, in subsequent sections. Lab Results This section contains the Chemistry/Hematology Results that were resulted 30 days before or 30 daysafter the date of the Encounter. Date/Time Source Result Type Result - Unit Interpretation Reference Range Specimen Type Comment Jan 14, 2025 01:21 PM [facility] HEMOGLOBIN A1C PANEL BLOOD Specimen Type: [...] Jan 14, 2025 12:42 PM Reporting Lab: [address] [address] Performing Lab: [address] [address] HEMOGLOBIN A1C 5.9 H 4.0-5.6 Jan 14, 2025 01:21 PM [facility] BASIC METABOLIC PANEL (non-fasting) SERUM Spe cimen Type: SERUM No comment entered. Ordering Provider: MARILU PAGAN Report Released Date/Time: Jan 14, 2025 12:42 PM Reporting Lab: [address] [address] Performing Lab: [address] [address] UREA NITROGEN 25 mg/dL 8-26 GLUCOSE 109 mg/dL H 65-100 SODIUM 137 mmol/L 136-145 POTASSIUM 4.8 mmol/L 3.5-5.1 CHLORIDE 103 mmol/L 98-107 CO2 24 meq/L 23-31 CALCIUM 10.0 mg/dL 8.8-10 CREATININE, Serum 1.69 mg/dL H 0.72-1.25 eGFR(CKD-EPI 2020) 44 mL/min L >60 Nov 27, 2024 09:42 AM [facility] VITAMIN D (25-OH) SERUM Specimen Type : SERUM No comment entered. Ordering Provider: SABINA MAJOR Report Released Date/Time: Oct 23, 2024 06:26 PM Reporting Lab: [address] [address] Performing Lab: [address] [address] VITAMIN D (25-OH) 13 ng/mL L 20-50 Nov 27, 2024 09:42 AM [facility] LIPID PANEL FASTING SERUM Specimen Ty pe: SERUM No comment entered. Ordering Provider: SABINA MAJOR Report Released Date/Time: Oct 23, 2024 06:26 PM Reporting Lab: [address] [address] Performing Lab: [address] [address] CHOLESTEROL 134 mg/dL TRIGLYCERIDE 205 mg/dL H 0-150 LDL calculated 63 mg/dL 0-129 CHOL/HDL 4.5 HDL CHOLESTEROL 30 mg/dL L 40-60 Nov 27, 2024 09:42 AM [place] FERRITIN SERUM Sp ecimen Type: SERUM No comment entered. Ordering Provider: SABINA MAJOR Report Released Date/Time: Oct 23, 2024 06:26 PM Reporting Lab: [address] [address] Performing Lab: [address] [address] FERRITIN 243 ng/mL 20-300 Nov 27, 2024 09:42 AM [facility] IRON & TIBC PANEL SERUM Specimen Type : SERUM No comment entered. Ordering Provider: SABINA MAJOR Report Released Date/Time: Oct 23, 2024 06:26 PM Reporting Lab: [address] [address] Performing Lab: [address] [address] TIBC 372 ug/dL 204-475 IRON 83 ug/dL 40-160 Transferrin Saturation 22.3 20.0-50.0 Transferrin (TRF) 282 mg/dL 200-360 Nov 27, 2024 09:42 AM [facility] CBC BLOOD Sp ecimen Type: BLOOD No comment entered. Ordering Provider: SABINA MAJOR Report Released Date/Time: Oct 23, 2024 06:26 PM Reporting Lab: [address] [address] Performing Lab: [address] [address] WBC 8.24 10*3/uL 4.50-11.00 RBC 5.33 10*6/uL 4.23-5.66 HGB 17.0 g/dL 12.8-17 HCT 49.8 39.2-50.4 MCV 93.4 fL 82-99 MCHC 34.1 g/dL 30.8-35.1 PLT 213 10*3/uL 140-360 RDW-CV 13.1 12.0-16.0 MCH 31.9 pg 26.2-32.6 Nov 27, 2024 09:42 AM [place] HEMOGLOBIN A1C PANEL BLOOD Specimen T ype: [...] Oct 23, 2024 06:26 PM Reporting Lab: [facility] [address] [address] Performing Lab: [facility] [address] [address] HEMOGLOBIN A1C 6.4 H 4.0-5.6 Nov 27, 2024 09:42 AM [place] TSH SERUM Sp ecimen Type: SERUM No comment entered. Ordering Provider: SABINA MAJOR Report Released Date/Time: Oct 23, 2024 06:26 PM Reporting Lab: [facility] [address] Performing [facility]: [facility] [address] [address] TSH 2.44 u[IU]/mL 0.35-5.00 Nov 27, 2024 09:42 AM [place] MICROALBUMIN CREATININE RATIO PANEL URINE Specimen Type: URINE No comment entered. Ordering Provider: SABINA MAJOR Report Released Date/Time: Oct 23, 2024 06:26 PM Reporting Lab: [facility] [address] [address] Performing Lab: [address] [address] MICROALBUMIN/CREATININE RATIO 528.6 mg/g H 0-29.9 MICROALBUMIN,QUANTITATIVE 76.5 mg/dL RR UNAVAIL CREATININE URINE 144.73 mg/dL Nov 27, 2024 09:42 AM [place] BASIC METABOLIC PANEL (fasting) SERUM Specimen Type: SERUM No comment entered. Ordering Provider: SABINA MAJOR Report Released Date/Time: Oct 23, 2024 06:26 PM Reporting Lab: [address] [address] Performing Lab: [address] [address] [facility]A NITROGEN 24 mg/dL 7-25 GLUCOSE 104 mg/dL H 65-100 SODIUM 139 mmol/L 135-145 POTASSIUM 4.7 mmol/L 3.5-5.0 CHLORIDE 105 mmol/L 100-110 CO2 23 meq/L 20-30 CALCIUM 10.2 mg/dL 8.5-10.2 CREATININE, Serum 1.54 mg/dL H 0.50-1.40 eGFR(CKD-EPI 2020) 50 mL/min L >60 Nov 27, 2024 09:42 AM [place] LIVER FUNCTION SERUM Specimen Type: SERUM No comment entered. Ordering Provider: SABINA MAJOR Report Released Date/Time: Oct 23, 2024 06:26 PM Reporting Lab: [address] [address] Performing Lab: [address] [address] PROTEIN,TOTAL 7.9 g/dL 6.0-8.3 ALBUMIN 4.2 g/dL 3.5-5.0 ALKALINE PHOSPHATASE 75 U/L 40-150 AST 27 U/L 5-34 ALT 43 U/L BILIRUBIN, TOTAL 0.5 mg/dL 0.2-1.2 Encounter Notes: All associated encounter notes This section contains the clinical notes associated to the Encounter. Date/Time Encounter Note(s) Provider Source Dec 17, 2024 11:18 AM NURSING NOTE: LOCAL TITLE: PRIMARY CARE NURSE NOTE STANDARD TITLE: NURSING NOTE DATE OF NOTE: DEC 17, 2024@11:18 ENTRY DATE: DEC 17, 2024@11:18:55 AUTHOR: GISELLE NGUYEN EXP COSIGNER: URGENCY: STATUS: COMPLETED Patient identity was verified using two identifiers, per [place] Policy: Full Name, Full SSN, Date of RAIZA BURCH is a 64 year old who presents to the clinic for blood pressure check per SABINA MAJOR for diagnosis of: HTN Visit Type: Clinic Scheduled Patient Education: Does patient require Patient Education Teaching Assessment? No Patient Education provided? Yes Learner: Patient Readiness to Learn: Patient is receptive to learning Topic/Teaching Needs: Disease/Condition: Equipment Use/Safety: Teaching Method: Explanation Learner's Response to Education: Able to explain education in own words Blood Pressure Check: S: Evaluation of blood pressure O: Blood Pressure Readings BP monitor reading #1 Systolic/diastolic: 124/84, Pulse: BP monitor reading #2, after resting for 10 minutes: Systolic/diastolic: 113/77, Pulse: Home BP monitor readings: 131-158/82-95 Abnormal Blood Pressure Symptom Review: Patient reports:NONE A: Blood Pressure Medication Review: Changes since last appointment? No Patient-reported adherence to regimen? Yes BP medicine taken today? Yes, Time: Active and Recently Outpatient Medications (including Supplies): Active Outpatient Medications Status 1) ALLOPURINOL 300MG TAB TAKE ONE-HALF TABLET BY MOUTH ONCE ACTIVE DAILY Indication: FOR GOUT 2) AMLODIPINE BESYLATE 5MG TAB TAKE ONE TABLET BY MOUTH ONCE ACTIVE DAILY FOR BLOOD PRESSURE/HEART, DO NOT TAKE WITH GRAPEFRUIT JUICE Indication: FOR HIGH BLOOD PRESSURE 3) LISINOPRIL 10MG TAB TAKE ONE TABLET BY MOUTH ONCE DAILY TO ACTIVE CONTROL BLOOD PRESSURE Indication: FOR HIGH BLOOD PRESSURE 4) SIMVASTATIN 40MG TAB TAKE ONE-HALF TABLET BY MOUTH AT ACTIVE BEDTIME FOR CHOLESTEROL Indication: FOR HIGH CHOLESTEROL 5) SODIUM BICARBONATE 325MG TAB TAKE ONE TABLET BY MOUTH THREE ACTIVE TIMES A DAY Indication: KIDNEY FUNCTION Inactive Outpatient Medications Status 1) AMOXICILLIN 875/CLAV K 125MG TAB TAKE 1 TABLET BY MOUTH TWICE DAILY FOR INFECTION Indication: FOR INFECTION CAUSED BY BACTERIA 6 Total Medications Nursing reviewed medications and no changes at this time. Knowledge Assessment: good Patient received education on the following topics today: HTN/Stroke & his personal risk factors Life style modifications encouraged: Increase aerobic physical activity (30-45 minutes most days of the week), Limit alcohol intake, Reduce intake of saturated fat and cholesterol, Reduce sodium intake, Weight reduction Barriers to learning: None If other, list here: Strategy/motivation for lifestyle change: P: Return to clinic/ Return to PCP clinic Clinician plan: RTC PRN Follow Up Colonoscopy: Colonoscopy is due based on information available to this reminder. A colonoscopy is currently scheduled or in process of being scheduled. Comment: Scheduled for February 27, 2025 Eye Care At-Risk Screen : Patient identified to be at risk for the following eye condition(s): MACULAR DEGENERATION: Macular Degeneration Risk Factors Information: Reminder Term: VA-AMD RISK FACTORS Encounter Diagnosis: 12/16/2024@13:00 Z68.37 (ICD-10-CM) Body mass index [BMI] 37.0-37.9, adult rank: SECONDARY Prov. Narr. - Body mass index [BMI] 37.0-37.9, adult Action: Patient has a future eye care appointment scheduled within the next 90 days. Date of Appointment: June 2025 /jose/ GISELLE NGUYEN RN REGISTERED NURSE Signed: 12/17/2024 11:33 GISELLE NGUYENFIELD
--- OUTSIDE RECORDS SUMMARY | 2025-01-16 07:57 | XMS_ITS | Encounter Summary ---
Author Name [facility] [place] Address [address] [facility], [place] [address] Care Team Providers Care Inspector Aligning Name Role Phone SABINA MAJOR Primary Care [...] Suero's Name Patient's Relationship to Policy Suero [facility] Sep 17, 2023 01 [id number] KIERSTENRAIZA SALGADO PATIENT Selected Encounter This section includes the information on record at [place] for the Encounter. Date/Time Encounter Type Encounter Description Reason Pro vider Source Dec 02, 2024 02:09 PM Outpatient Encounter ADMIN PAT ACTIVTIES (MASNONCT) IHE Encounter Template Text not used by [place] Plan of Treatment: Future Appointments (+ 6 months) and Future Tests (+/- 45 days) The Plan of Treatment section includes future care activities for the patient from all [facility] This section includes future appointments and future orders which are active, pending or scheduled. Future Appointments This section includes appointments that were scheduled to occur 6 months from the date of the Encounter, up to a maximum of 20 appointments. The data comes from all [facility]. Appointment Date/Time Appointment Type Appointme nt Facility Name Dec 09, 2024 01:00 PM AMBULATORY - NONE [facility] ([facility]) Dec 10, 2024 10:30 AM AMBULATORY - MEDICINE [facility] [place] [facility] Dec 10, 2024 03:40 PM AMBULATORY - NONE [place] [facility] Dec 16, 2024 01:00 PM AMBULATORY - NONE [place] [facility]) Dec 17, 2024 11:00 AM AMBULATORY - MEDICINE [facility] [place] [facility] Dec 23, 2024 01:00 PM AMBULATORY - NONE [facility]) Dec 30, 2024 01:00 PM AMBULATORY - NONE [facility]) Jan 06, 2025 01:00 PM AMBULATORY - NONE [facility]) Jan 13, 2025 01:00 PM AMBULATORY - NONE [facility] [facility]) Jan 14, 2025 12:30 PM AMBULATORY - MEDICINE [facility] [place] [facility] January 30, 2025 01:00 PM [facility] Mar 17, 2025 02:00 PM AMBULATORY - MEDICINE [facility] [place] [facility] Apr 07, 2025 10:00 AM [facility] [place] [facility] Active, Pending, and Scheduled Orders This section includes a listing of several types of active, pending, and scheduled orders, including clinic medications orders, diagnostic test orders, procedure orders and consult orders; where the start date of the order is 45 days before the date of the Encounter or 45 days after the date of theEncounter. The data comes from all [facility]. Test Date/Time Test Type Test Details Facility Name Dec 10, 2024 12:21 PM Consult Order OPTOMETRY/ [facility] OUTPT Cons Business Insurance Agent's Choice [facility] Lab Results: +/- 30 days of [...] Type Comment Nov 27, 2024 09:42 AM [place] LIPID PANEL FASTING SERUM Specimen Ty pe: SERUM No comment entered. Ordering Provider: SABINA MAJOR Report Released Date/Time: Oct 23, 2024 06:26 PM Reporting Lab: [address] [address] Performing Lab: [address] [address] CHOLESTEROL 134 mg/dL TRIGLYCERIDE 205 mg/dL H 0-150 LDL calculated 63 mg/dL 0-129 CHOL/HDL 4.5 HDL CHOLESTEROL 30 mg/dL L 40-60 Nov 27, 2024 09:42 AM [place] VITAMIN D (25-OH) SERUM Specimen Type : SERUM No comment entered. Ordering Provider: SABINA MAJOR Report Released Date/Time: Oct 23, 2024 06:26 PM Reporting Lab: [address] [address] Performing Lab: [address] [address] VITAMIN D (25-OH) 13 ng/mL L 20-50 Nov 27, 2024 09:42 AM [place] FERRITIN SERUM Sp ecimen Type: SERUM No comment entered. Ordering Provider: SABINA MAJOR Report Released Date/Time: Oct 23, 2024 06:26 PM Reporting Lab: [address] [address] Performing Lab: [address] [address] FERRITIN 243 ng/mL 20-300 Nov 27, 2024 09:42 AM [place] IRON & TIBC PANEL SERUM Specimen Type : SERUM No comment entered. Ordering Provider: SABINA MAJOR Report Released Date/Time: Oct 23, 2024 06:26 PM Reporting Lab: [address] [address] Performing Lab: [address] [address] TIBC 372 ug/dL 204-475 IRON 83 ug/dL 40-160 Transferrin Saturation 22.3 20.0-50.0 Transferrin (TRF) 282 mg/dL 200-360 Nov 27, 2024 09:42 AM [place] CBC BLOOD Sp ecimen Type: BLOOD No comment entered. Ordering Provider: SABINA MAJOR Report Released Date/Time: Oct 23, 2024 06:26 PM Reporting Lab: [address] [address] Performing Lab: [address] [address] WBC 8.24 10*3/uL 4.50-11.00 RBC 5.33 10*6/uL 4.23-5.66 HGB 17.0 g/dL 12.8-17 HCT 49.8 39.2-50.4 MCV 93.4 fL 82-99 MCHC 34.1 g/dL 30.8-35.1 PLT 213 10*3/uL 140-360 RDW-CV 13.1 12.0-16.0 MCH 31.9 pg 26.2-32.6 Nov 27, 2024 09:42 AM [place] HEMOGLOBIN A1C PANEL BLOOD Specimen T ype: [...] Oct 23, 2024 06:26 PM Reporting Lab: [address] [address] Performing Lab: [address] [address] HEMOGLOBIN A1C 6.4 H 4.0-5.6 Nov 27, 2024 09:42 AM [place] TSH SERUM Sp ecimen Type: SERUM No comment entered. Ordering Provider: SABINA MAJOR Report Released Date/Time: Oct 23, 2024 06:26 PM Reporting Lab: [address] [address] Performing Lab: [facility] [place] [address] [address] TSH 2.44 u[IU]/mL 0.35-5.00 Nov 27, 2024 09:42 AM [place] MICROALBUMIN CREATININE RATIO PANEL URINE Specimen Type: URINE No comment entered. Ordering Provider: SABINA MAJOR Report Released Date/Time: Oct 23, 2024 06:26 PM Reporting Lab: [facility] [address] [address] Performing Lab: [address] [address] MICROALBUMIN/CREATININE RATIO 528.6 mg/g H 0-29.9 MICROALBUMIN,QUANTITATIVE 76.5 mg/dL RR UNAVAIL CREATININE URINE 144.73 mg/dL Nov 27, 2024 09:42 AM [place] BASIC METABOLIC PANEL (fasting) SERUM Specimen Type: SERUM No comment entered. Ordering Provider: SABINA MAJOR Report Released Date/Time: Oct 23, 2024 06:26 PM Reporting Lab: [facility] [address] [address] Performing Lab: [address] [address] UREA NITROGEN 24 mg/dL 7-25 GLUCOSE 104 mg/dL H 65-100 SODIUM 139 mmol/L 135-145 POTASSIUM 4.7 mmol/L 3.5-5.0 CHLORIDE 105 mmol/L 100-110 CO2 23 meq/L 20-30 CALCIUM 10.2 mg/dL 8.5-10.2 CREATININE, Serum 1.54 mg/dL H 0.50-1.40 eGFR(CKD-EPI 2020) 50 mL/min L >60 Nov 27, 2024 09:42 AM [place] LIVER FUNCTION SERUM Specimen Type: SERUM No comment entered. Ordering Provider: SABINA MAJOR Report Released Date/Time: Oct 23, 2024 06:26 PM Reporting Lab: [facility] [address] [address] Performing Lab: [address] [address] PROTEIN,TOTAL 7.9 g/dL 6.0-8.3 ALBUMIN 4.2 g/dL 3.5-5.0 ALKALINE PHOSPHATASE 75 U/L 40-150 AST 27 U/L 5-34 ALT 43 U/L BILIRUBIN, TOTAL 0.5 mg/dL 0.2-1.2 Social History: Smoking Status (Most current) and Tobacco Use (All prior to encounter date) This section includes the most current, and the historical, smoking and tobacco- related health factors from the [place] facility where the Encounter took place. Current Smoking Status This section includes the most current smoking, or tobacco-related health factor, from the [place] facility where the Encounter took place. Date/Time Current Smoking Status Comment Facil ity Apr 03, 2024 01:23 PM VA-TOBACCO NEVER USED [facility] Tobacco Use History This section includes a history of the smoking, or tobacco-related health factors, that were collected on or before the date of the Encounter. The data comes from the [place] facility where the Encounter took place. Date/Time Smoking Status/Tobacco Use Comment F acility Jun 25, 2019 01:10 PM VA-TOBACCO NEVER USED [facility] Encounter Notes: All associated encounter notes This section contains the clinical notes associated to the Encounter. Date/Time Encounter Note(s) Provider Source Dec 02, 2024 02:37 PM ADDENDUM: LOCAL TITLE: Addendum STANDARD TITLE: ADDENDUM DATE OF NOTE: DEC 02, 2024@14:37:55 ENTRY DATE: DEC 02, 2024@14:37:56 AUTHOR: CARROL FUENTES EXP COSIGNER: URGENCY: STATUS: COMPLETED Alerting AYSE who was leading the group. Please reach out to this [place]. /jose/ CARROL FUENTES Registered Dietitian Signed: 12/02/2024 14:38 Receipt Acknowledged By: 12/03/2024 16:44 /jose/ NIXON GUTIERREZ RD,AISHAN STAFF DIETITIAN === --- Original Document --- 12/02/24 CCC: SCHEDULING ADMINISTRATION: called to inform that he was late today for the Virtual ([facility]) meeting today for his weight loss programs. Please reached out to vet at his new phone number [phone]. Thank You /javy ECHEVARRIA Signed: 12/02/2024 14:10 Receipt Acknowledged By: 12/03/2024 08:12 /jose/ RAIZA MARCOS STAFF DIETITIAN 12/02/2024 14:38 /jose/ CARROL FUENTES Registered Dietitian CARROL FUENTES [place] [place] [facility] Dec 02, 2024 02:09 PM ADMINISTRATIVE NOTE: LOCAL TITLE: CCC: SCHEDULING ADMINISTRATION STANDARD TITLE: ADMINISTRATIVE NOTE DATE OF NOTE: DEC 02, 2024@14:09 ENTRY DATE: DEC 02, 2024@14:09:33 AUTHOR: NAVID DOUGLAS EXP COSIGNER: URGENCY: STATUS: COMPLETED CCC: SCHEDULING ADMINISTRATION Has ADDENDA called to inform that he was late today for the Virtual ([facility]) meeting today for his weight loss programs. Please reached out to vet at his new phone number [phone]. Thank You /javy ECHEVARRIA Signed: 12/02/2024 14:10 Receipt Acknowledged By: 12/03/2024 08:12 /jose/ RAIZA MARCOS STAFF DIETITIAN 12/02/2024 14:38 /jose/ CARROL FUENTES Registered Dietitian 12/02/2024 ADDENDUM STATUS: COMPLETED Alerting RD who was leading the group. Please reach out to this [place]. /javy FUENTES Registered Dietitian Signed: 12/02/2024 14:38 Receipt Acknowledged By: 12/03/2024 16:44 /jose/ NIXON GUTIERREZ RD,LDN STAFF DIETITIAN 12/03/2024 ADDENDUM STATUS: COMPLETED Returned call to patient. He wanted to apologize for missing 12/02 MOVE class. Let opal know no apopogies needed, but appreciated his thoghtfulness. Discussed he could review module 2 in MOVE workbook and that we would also do a review at the beginning of next class. Patient expressed appreciation for retruend call. /jose/ NIXON GUTIERREZ RD,LDN STAFF DIETITIAN Signed: 12/03/2024 16:47 NAVID DOUGLAS [facility]
--- OUTSIDE RECORDS SUMMARY | 2025-01-16 07:57 | XMS_ITS ---
[place] MEDICAL NUTRITION IN[place] Encounter Summary Created on: January 16, 2025 KIERSTENRAIZA SALGADO : 1960 Sex: Male Author Name [facility] [place] Address [address] [place] [address] Care Team Providers Care Press And Blow Machine Tender Name Role Phone SABINA MAJOR Primary Care [...] Suero's Name Patient's Relationship to Policy Suero [place] Sep 17, 2023 01 [id number] KIERSTENRAIZA PATIENT Selected Encounter This section includes the information on record at [place] for the Encounter. Date/Time Encounter Type Encounter Description Reason Provider Source Nov 27, 2024 09:15 AM MEDICAL NUTRITION INDIV IN NUTRITION/DIETETIC S-INDIVIDUAL ICD-10-CM E66.812 Obesity, class 2 RAIZA MARCOS [place] Encounter Template Text not used by [place] Assessments - Encounter Diagnoses This section includes the primary and secondary diagnoses documented for the Encounter. Date/Time Primary/Secondary Diagnosis Diagnosis Name Provider Source Nov 27, 2024 03:50 PM PRIMARY Obesity, class 2 WINSOME MARCOS [place] Nov 27, 2024 03:50 PM SECONDARY Body mass index [BMI] 38.0-38.9, adult WINSOME MARCOS Nov 27, 2024 03:50 PM SECONDARY Dietary counseling and surveillance WINSOME MARCOS [place] Nov 27, 2024 03:50 PM SECONDARY Prediabetes WINSOME MARCOS [place] Plan of Treatment: Future Appointments (+ 6 months) and Future Tests (+/- 45 days) The Plan of Treatment section includes future care activities for the patient [facility] [place] [facility] This section includes future appointments and future orders which are active, pending or scheduled. Future Appointments This section includes appointments that were scheduled to occur 6 months from the date of the Encounter, up to a maximum of 20 appointments. The data comes from all [place] treatment facilities. Appointment Date/Time Appointment Type Appointme nt Facility Name Dec 09, 2024 01:00 PM AMBULATORY - NONE [facility]) Dec 10, 2024 10:30 AM AMBULATORY - [place]ICINE [place] [facility] Dec 10, 2024 03:40 PM AMBULATORY - NONE [place] [facility] Dec 16, 2024 01:00 PM AMBULATORY - NONE [facility] [facility] Dec 17, 2024 11:00 AM AMBULATORY - MEDICINE [place] [facility] Dec 23, 2024 01:00 PM AMBULATORY - NONE [facility] Dec 30, 2024 01:00 PM AMBULATORY - NONE [facility] Jan 06, 2025 01:00 PM AMBULATORY - NONE [facility] [facility] Jan 13, 2025 01:00 PM AMBULATORY - NONE [facility] [facility]) Jan 14, 2025 12:30 PM AMBULATORY - [place]ICINE [place] [facility] January 30, 2025 01:00 PM [facility] Mar 17, 2025 02:00 PM AMBUL[place]ORY - [place]ICINE [place] [facility] Apr 07, 2025 10:00 AM AMBULATORY - MEDICINE [place] [facility] Active, Pending, and Scheduled Orders This section includes a listing of several types of active, pending, and scheduled orders, including clinic medications orders, diagnostic test orders, procedure orders and consult orders; where the start date of the order is 45 days before the date of the Encounter or 45 days after the date of theEncounter. The data comes from all [place] treatment facilities. Test Date/Time Test Type Test Details Facility Name Dec 10, 2024 12:21 PM Consult Order OPTOMETRY/ NHM OUTPT Cons Casing Operator's Choice [facility] Lab Results: +/- 30 days [...] Type Comment Nov 27, 2024 09:42 AM [place] VITAMIN D (25-OH) SERUM Specimen Type : SERUM No comment entered. Ordering Provider: SABINA MAJOR Report Released Date/Time: Oct 23, 2024 06:26 PM Reporting Lab: [address] [address] Performing Lab: [address] [address] VITAMIN D (25-OH) 13 ng/mL L 20-50 Nov 27, 2024 09:42 AM [place] LIPID PANEL FASTING SERUM Specimen Ty pe: SERUM No comment entered. Ordering Provider: SABINA MAJOR Report Released Date/Time: Oct 23, 2024 06:26 PM Reporting Lab: [address] [address] Performing Lab: [address] [address] CHOLESTEROL 134 mg/dL TRIGLYCERIDE 205 mg/dL H 0-150 LDL calculated 63 mg/dL 0-129 CHOL/HDL 4.5 HDL CHOLESTEROL 30 mg/dL L 40-60 Nov 27, 2024 09:42 AM [place] FERRITIN SERUM Sp ecimen Type: SERUM No comment entered. Ordering Provider: SABINA MAJOR Report Released Date/Time: Oct 23, 2024 06:26 PM Reporting Lab: [address] [address] Performing Lab: [address] [address] FERRITIN 243 ng/mL 20-300 Nov 27, 2024 09:42 AM [place] IRON & TIBC PANEL SERUM Specimen Type : SERUM No comment entered. Ordering Provider: SABINA MAJOR Report Released Date/Time: Oct 23, 2024 06:26 PM Reporting Lab: [facility] [address] [address] Performing Lab: [address] [address] TIBC 372 ug/dL 204-475 IRON 83 ug/dL 40-160 Transferrin Saturation 22.3 20.0-50.0 Transferrin (TRF) 282 mg/dL 200-360 Nov 27, 2024 09:42 AM [place] CBC BLOOD Sp ecimen Type: BLOOD No comment entered. Ordering Provider: SABINA MAJOR Report Released Date/Time: Oct 23, 2024 06:26 PM Reporting Lab: [address] [address] Performing Lab: [address] [address] WBC 8.24 10*3/uL 4.50-11.00 RBC 5.33 10*6/uL 4.23-5.66 HGB 17.0 g/dL 12.8-17 HCT 49.8 39.2-50.4 MCV 93.4 fL 82-99 MCHC 34.1 g/dL 30.8-35.1 PLT 213 10*3/uL 140-360 RDW-CV 13.1 12.0-16.0 MCH 31.9 pg 26.2-32.6 Nov 27, 2024 09:42 AM [place] HEMOGLOBIN A1C PANEL BLOOD Specimen T ype: [...] Oct 23, 2024 06:26 PM Reporting Lab: [facility] [address] [address] Performing Lab: [place] [facility] [address] [address] HEMOGLOBIN A1C 6.4 H 4.0-5.6 Nov 27, 2024 09:42 AM [place] TSH SERUM Sp ecimen Type: SERUM No comment entered. Ordering Provider: SABINA MAJOR Report Released Date/Time: Oct 23, 2024 06:26 PM Reporting Lab: [facility] [address] Performing Lab: [facility] [address] TSH 2.44 u[IU]/mL 0.35-5.00 Nov 27, 2024 09:42 AM [place] MICROALBUMIN CREATININE RATIO PANEL URINE Specimen Type: URINE No comment entered. Ordering Provider: SABINA MAJOR Report Released Date/Time: Oct 23, 2024 06:26 PM Reporting Lab: [facility] [address] Performing Lab: [facility] [address] MICROALBUMIN/CREATININE RATIO 528.6 mg/g H 0-29.9 MICROALBUMIN,QUANTITATIVE 76.5 mg/dL RR UNAVAIL CREATININE URINE 144.73 mg/dL Nov 27, 2024 09:42 AM [place] LIVER FUNCTION SERUM Specimen Type: SERUM No comment entered. Ordering Provider: SABINA MAJOR Report Released Date/Time: Oct 23, 2024 06:26 PM Reporting Lab: [facility] [address] [address] Performing Lab: [facility] [address] PROTEIN,TOTAL 7.9 g/dL 6.0-8.3 ALBUMIN 4.2 g/dL 3.5-5.0 ALKALINE PHOSPHATASE 75 U/L 40-150 AST 27 U/L 5-34 ALT 43 U/L BILIRUBIN, TOTAL 0.5 mg/dL 0.2-1.2 Nov 27, 2024 09:42 AM [place] BASIC METABOLIC PANEL (fasting) SERUM Specimen Type: SERUM No comment entered. Ordering Provider: SABINA MAJOR Report Released Date/Time: Oct 23, 2024 06:26 PM Reporting Lab: [facility] [address] [facility] [address] Performing Lab: [facility] [address] [facility] [address] UREA NITROGEN 24 mg/dL 7-25 GLUCOSE 104 mg/dL H 65-100 SODIUM 139 mmol/L 135-145 POTASSIUM 4.7 mmol/L 3.5-5.0 CHLORIDE 105 mmol/L 100-110 CO2 23 meq/L 20-30 CALCIUM 10.2 mg/dL 8.5-10.2 CREATININE, Serum 1.54 mg/dL H 0.50-1.40 eGFR(CKD-EPI 2020) 50 mL/min L >60 Encounter Notes: All associated encounter notes This section contains the clinical notes associated to the Encounter. Date/Time Encounter Note(s) Provider Source Nov 27, 2024 09:15 AM NUTRITION DIETETIC S CONSULT: LOCAL TITLE: CONSULT REPORT/NUTRITION AND CRISIS MENTAL HEALTH THERAPIST STANDARD TITLE: NUTRITION DIETETICS CONSULT DATE OF NOTE: NOV 27, 2024@09:15 ENTRY DATE: NOV 27, 2024@09:40:46 AUTHOR: RAIZA MARCOS COSIGNER: URGENCY: STATUS: COMPLETED NUTRITION ASSESSMENT Reason for Nutrition referral: Primary Diagnosis: Obesity class II (E66.212) Secondary Diagnosis: Dietary Surveillance and Counseling (Z71.3) Additional Secondary Diagnosis: Hyperlipidemia, unspecified (E78.5), PreDiabetes (R73.03) Date of Nutrition Visit: Nov Visit #:1 Time Spent with Patient: 40 minutes Patient identified using the following two forms of ID: Date of , Patient Full Name NUTRITION ASSESSMENT: Client History === Medication List Reviewed Food/Drug Interactions: Amlodipine/Grapefruit, Simvastatin/Grapefruit, Food drug interaction education provided Nutritional/Herbal Supplements: no Food Allergies:no Problem List Reviewed: yes Anthropometric Measurements: Ht:67 in [170.2 cm] (10/21/2024 15:55) Wt:247.7 lb [112.35 kg] (11/27/2024 09:40) Weight History: Measurement DT WEIGHT LB(KG)[BMI] 11/27/2024 09:40 247.7(112.35)[39*] 11/25/2024 13:00 245.4(111.31)[39*] 10/21/2024 15:55 260(117.93)[41*] BMI: 38.9 IBW: 148 lb Biochemical Data/Medical Tests: Labs: LIPID PANEL TREND Collection DT Spec CHOL HDL CHO/HDL LDL-d LDL-c TRIG 08/11/2024 13:16 SERUM 200 H 40 5.0 105 Reflex to dLDL 403 H HEMOGLOBIN A1C; BLOOD Isa. Date: 08/11/24 13:16 04/03/24 13:52 Test Name Result Units Range HEMOGLOBIN A1C 6.1 H 5.7 H % 4.0 - 5.6 Other Labs: Collection DT Spec GLUCOSE BUN CREATIN Sodium K+/Pot CL CO2 11/27/2024 09:42 SERUM 104 H 24 1.54 H 139 4.7 105 23 Collection DT Spec Calcium 11/27/2024 09:42 SERUM 10.2 eGFR CKD-EPI 202011/27/24 09:42 50 L SERUM BP: 163/65 (10/21/2024 15:55) Nutrition Focused Physical Findings: === Appetite: Good Other issues/concerns: None Nutrition-Focused Physical Exam A selection MUST be made in The Nutrition-Focused Physical Exam Summary section Signs of Obesity Body habitus: Android Obesity Nutrition-Focused Physical Exam Summary: ======= Based on the ASPEN/AND Malnutrition Diagnosis Guide, it was determined that the Lawson DOES NOT have malnutrition. Nutrition History: Food/Nutrition Related History: Met with who is concerned about his weight. He notes he has lost 15 lb over past month. He does the cooking and shopping. He eats 1-2 meals per day. Does not eat out often. Drinks 1 cup per day of coffee, water and tea during the day. 24 hour recall: L: pasta, mixing picker tender, meatball, raspberry tea x 2 D: turkey wrap, yogurt snacks: none In the past 3 months, did you ever run out of food and you were not able to access more food or have the money to buy more food? No Physical Activity: strength training 3 days per week NUTRITION DIAGNOSIS Nutrition Problem: ACTIVE Obesity related to excess energy intake, physical inactivity, as evidenced by BMI=35-39.9. Altered nutrition-related laboratory values (SPECIFY:____) related to overweight/obesity as evidenced by A1c >5.6% (pre-diabetes), Total Chol>200 mg/dl, Triglycerides>150 mg/dl . INTERVENTION NUTRITION COUNSELING Nutrition counseling based on motivational interviewing strategy , Nutrition counseling based on goal setting strategy , Nutrition counseling based on self monitoring strategy NUTRITION EDUCATION Content related to nutrition education, Education on nutrition's influence on health, Physical activity guidance Nutrition Education provided on the following topics: Sources of Carbohydrates, Healthy Meal Planning, Healthy Weight Loss Strategies, Potential Benefits of Weight Loss, MOVE! program (rationale, format, content, day/time, location), Physical Activity (potential benefits) Printed Nutrition educational materials provided during this encounter: Managing Pre-Diabetes Barriers to Education: None Comprehension: Good Motivation: Good COORDINATION OF NUTRITION CARE Follow-up with: PCP, MOVE! program MONITORING Patient goals: 1. Continue with the MOVE group. 2. Continue with changes made to decreasing portions and snacking. FOLLOW-UP PLAN 1. Follow-up visit: Apr 2. Monitor progress toward achievement of Nutrition Intervention Goals 3. Assess comprehension and motivation based on dietary changes made 4. Monitor progress toward achievement of Clinical Outcome Goals: Weight, Labs, Oral Intake CLINICAL OUTCOME GOALS: Indicator A1c: Criteria: Impaired Fasting Glucose Goal: A1c<5.7% by follow-up Progress: TBD at follow-up Indicator: Weight Criteria: Obese per BMI Goal: Weight loss of 1-2/#/week toward IBW by follow-up Progress: TBD at follow-up WHOLE HEALTH ====== WHOLE HEALTH EDUCATION ====== Whole Health Education was provided. /jose/ RAIZA MARCOS STAFF DIETITIAN Signed: 11/27/2024 15:50 RAIZA MARCOS [place]
--- OUTSIDE RECORDS SUMMARY | 2025-01-16 07:57 | XMS_ITS | Continuity of Care Document ---
Author Name [facility] Organization [facility] Care Team Providers Care Social Work Msw Name Role Phone [facility]-[place] Unavailable Unavailable Problems Combined list of problems from Department of Defense and Veterans Affairs facilities. It does not include entries that were removed or entered in error. Problem Status Onset Date Problem Type Date of Resolution Comments Source Screening for malignant neoplasm of colon done Active 017 Condition Aug 01, 2024 Entered By: SABINA MAJOR Comment: colo 2014 2 tubular adenomas, 1 hyperplastic adenoma [facility] Benign essential hypertension Active Condition [facility]ilateral hearing loss Active Condition [facility] Cataract Active Condition Apr 06 Entered By: SABINA MAJOR Comment: OU [facility] Family medical history Active Condition Apr 06, 2024 Entered By: SABINA MAJOR Comment: mother - DM2, heart diseaseJul 2023 Entered By: SABINA MAJOR Comment: son - congenital kidney diseaseJul 2023 Entered By: SABINA MAJOR Comment: unsure about paternal side of family [facility] Gout Active Condition [facility] History of malignant neoplasm of prostate Active Condition Aug 15, 2019 Entered By: GLORIA BROWN Comment: prostatectomyJul 2023 Entered By: SABINA MAJOR Comment: has urinary dribbling, ED symptoms since surgery [facility] Mixed hyperlipidaemia Active Condition Nov 22, 2024 Entered By: SABINA MAJOR Comment: 08/11/24 TG 403 [facility] Nephropathy Active Condition Apr 03, 2024 Entered By: SABINA MAJOR Comment: 09/26/22 GFR 48Mar 2024 Entered By: SABINA MAJOR Comment: 08/11/24 GFR 46Mar 2024 Entered By: SABINA MAJOR Comment: 11/27/24 GFR 50 [facility] Obesity Active Condition Aug 01 Entered By: SABINA MAJOR Comment: 05/06/24 BMI 38Mar 2024 Entered By: SABINA MAJOR Comment: 10/21/24 BMI 41 [facility] Prediabetes Active Condition Nov 22, 2024 Entered By: SABINA MAJOR Comment: 08/11/24 A1c 6.1Mar 2024 Entered By: SABINA MAJOR Comment: 11/27/24 A1c 6.4 [facility] Synovial cyst of knee Active Condition Apr 06, 2024 Entered By: SABINA MAJOR Comment: bilateral knees [facility] Tinnitus Active Condition Apr 06 Entered By: SABINA MAJOR Comment: bilateral [facility] Umbilical hernia Active Condition [facility] IH - Inguinal hernia Inactive Condition 04/06/2024 Apr 06, 2024 Entered By: SABINA MAJOR Comment: repaired 2015 [facility] Kidney Stone (SCT [id number]) Inactive Condition 04/03/2024 [facility] Diagnosis: ICD-10-CM E66.9 Obesity, unspecified Active Diagnosis [place] Diagnosis: ICD-10-CM E66.812 Obesity, class 2 Active Diagnosis [place] ([facility]) Diagnosis: ICD-10-CM I10 Essential (primary) hypertension Active Diagnosis [place] Diagnosis: ICD-10-CM E78.2 Mixed hyperlipidemia [facility] Diagnosis: ICD-10-CM J01.10 Acute frontal sinusitis, unspecified Active Diagnosis [place] Diagnosis: ICD-10-CM Z23 Encounter for immunization Active Diagnosis [place] Diagnosis: ICD-10-CM M71.20 Synovial cyst of popliteal space [[place]], unspecified knee Active Diagnosis [facility] Medications Combined list of outpatient medications from Department of Defense and Veterans Affairs facilities.Medications provided include 1) outpatient medications from the last 15 months, and 2) patient-reported medications. Medication Details Route Status Patient Instructions Prescription Expires Prescription Number Last Dispense Date Ordering Provider Order Date Order Qty Source ALLOPURINOL 300MG TAB TAKE ONE-HALF TABLET BY MOUTH ONCE DAILY FOR GOUT FOR GOUT ORAL ACTIVE 04/04/2025 [id number] Norma MAJOR 2023 45 IELD AMLODIPINE BESYLATE 5MG TAB TAKE ONE TABLET BY MOUTH ONCE DAILY FOR BLOOD PRESSURE /HEART, DO NOT TAKE WITH GRAPEFRU IT JUICE ORAL ACTIVE 04/04/2025 [id number] 5 Norma MAJOR 2023 90 IELD AMOXICILLIN TRIHYDRATE 875MG/CLAVU LANATE K 125MG TAB TAKE 1 TABLET BY MOUTH TWICE DAILY FOR INFECTIO N ORAL 11/20/2024 [id number] 5 Norma MAJOR 2024 20 IELD LISINOPRIL 10MG TAB TAKE ONE TABLET BY MOUTH ONCE DAILY TO CONTROL BLOOD PRESSURE ORAL ACTIVE 04/04/2025 [id number] 5 Norma MAJOR 2023 90 IELD SIMVASTATIN 40MG TAB TAKE ONE-HALF TABLET BY MOUTH AT BEDTIME FOR CHOLESTE ROL ORAL ACTIVE 04/04/2025 [id number] 5 Norma MAJOR 2023 45 IELD SODIUM BICARBONATE 325MG TAB TAKE ONE TABLET BY MOUTH THREE TIMES A DAY ORAL ACTIVE 04/04/2025 [id number] 5 Norma MAJOR 2023 270 IELD Immunizations Combined list of available immunizations from the Department of Defense and [facility] facilities. Immunization Series Date Given Administered By Site Reaction Lot Number CVX Code Drug Lock Fitter Status Comments Source ZOSTER RECOMBINANT 2023 ZAIN NGUYEN LEFT DELTO ID [id number] 187 complet ed Completed Series, [facility]MIN[facility] IELD PNEUMOCOCCAL CONJUGATE PCV20, POLYSACCHARID E [id number] CONJUGATE, ADJUVANT, PF 2023 SHARAN COON LEFT DELTO ID [id number] 216 complet ed [facility] ZOSTER RECOMBINANT 1 2023 SHARAN COON BRIAN LEFT DELTO ID [id number] 187 complet ed [facility]MIN[facility] [place] INFLUENZA, UNSPECIFIED FORMULATION 2023 88 complet ed HISTORICA L INFORMATI ON - FROM PATIENT'S RECALL, [facility] COVID-19 (PFIZER), MRNA, LNP-S, PF, 30 MCG/0.3 ML DOSE 2 2020 208 complet ed PFR; [id number]; 1 [facility] COVID-19 (PFIZER), MRNA, LNP-S, PF, 30 MCG/0.3 ML DOSE 1 2020 208 complet ed PFR; [id number]; 1 [facility] PNEUMOCOCCAL POLYSACCHARID E [id number] 2019 33 complet ed [facility] INFLUENZA, INJECTABLE, QUADRIVALENT, PRESERVATIVE FREE 2018 150 complet ed Site: Left Deltoid [facility] TDAP 2018 115 complet ed Site: Left Deltoid [facility] Results Combined list of recent chemistry, hematology and other laboratory results from Department of Defense and Veterans Affairs, ranging from 15 months to all on record, depending upon the facility. Order Name Results Value Reference Range Date Interpretation Specimen Comments Source HEMOGLOBI N A1C PANEL HEMOGLOBIN A1C/HEMOGLO BIN.TOTAL IN BLOOD BY [facility] PROTOCOL 5.9 4.0 - 5.6 01/14 H Specimen Type: BLOOD Comment: Values obtained from A1C measurement s can vary. For atypical A1C assays, a reported value of 7.0 could actually be between 6.72 and 7.28 if measured by a reference method. A reported value of 9.0 could actually be between 8.73 and 9.27. Ref: http://www. ngsp.org/[place] Pdata.asp Ordering Provider: DUONG PAGAN Report Released Date/Time: Jan 14, 2025 12:42 PM Reporting Lab: [facility]TR[facility] [address] [address] Performing Lab: [facility]ITALRDEKAL[facility]ENTERN [address] [address] [facility] BASIC METABOLIC PANEL (non-fast ing) UREA NITROGEN [MASS/VOLUM E] IN SERUM OR PLASMA 25 mg/dL 8 - 26 01/14 Specimen Type: SERUM No comment entered. Ordering Provider: DUONG PAGAN Report Released Date/Time: Jan 14, 2025 12:42 PM Reporting Lab: [facility] [address] [address] Performing Lab: [facility] [address] [address] [facility] BASIC METABOLIC PANEL (non-fast ing) GLUCOSE [MASS/VOLUM E] IN SERUM OR PLASMA 109 mg/dL 65 - 100 01/14 H Specimen Type: SERUM No comment entered. Ordering Provider: DUONG PAGAN Report Released Date/Time: Jan 14, 2025 12:42 PM Reporting Lab: [address] [address] Performing Lab: [facility] [address] [address] [facility] BASIC METABOLIC PANEL (non-fast ing) SODIUM [MOLES/VOLU ME] IN SERUM OR PLASMA 137 mmol/L 136 - 145 01/14 Specimen Type: SERUM No comment entered. Ordering Provider: DUONG PAGAN Report Released Date/Time: Jan 14, 2025 12:42 PM Reporting Lab: [facility]RDE[facility]ERN [address] [address] Performing Lab: [facility]ITALR[facility]ERN [address] [address] [facility] BASIC METABOLIC PANEL (non-fast ing) POTASSIUM [MOLES/VOLU ME] IN SERUM OR PLASMA 4.8 mmol/L 3.5 - 5.1 01/14 Specimen Type: SERUM No comment entered. Ordering Provider: DUONG PAGAN Report Released Date/Time: Jan 14, 2025 12:42 PM Reporting Lab: [facility]ITALRPRATTVILLE [facility]AP[facility]OSPITALTRN [facility]ENTERUSETS [address] [address] Performing Lab: [facility]ITALRDEKAL[facility]ERN [address] [address] [facility]ITALRDEKAL[facility]ENTERN [facility]ENTERUSE [facility] BASIC METABOLIC PANEL (non-fast ing) CHLORIDE [MOLES/VOLU ME] IN SERUM OR PLASMA 103 mmol/L 98 - 107 01/14 Specimen Type: SERUM No comment entered. Ordering Provider: DUONG PAGAN Report Released Date/Time: Jan 14, 2025 12:42 PM Reporting Lab: [facility]ITALRPRATTVIL[facility]PITALTRN [facility]ENTERUSE[address] [address] Performing Lab: [facility]ITALRPRATTVIL[facility]OSPITALTRN [facility]ENTERUSE[address] [address] [facility]ITALRDEKAL[facility]ENTERN [facility]ENTERUSE [facility] BASIC METABOLIC PANEL (non-fast ing) CARBON DIOXIDE, TOTAL [MOLES/VOLU ME] IN SERUM OR PLASMA 24 meq/L 23 - 31 01/14 Specimen Type: SERUM No comment entered. Ordering Provider: DUONG PAGAN Report Released Date/Time: Jan 14, 2025 12:42 PM Reporting Lab: [facility]ITALRPRATTVIL[facility]OSPITALTRN [facility]ENTERUSE[address] [address] Performing Lab: [facility]ITALRPRATTVIL[facility]AP[facility] HOSPITALTRN [facility]ENTERUSE[address] [address] [facility]ITALRDEKAL[facility] CENTERN [facility]ENTERUSE [facility] BASIC METABOLIC PANEL (non-fast ing) CALCIUM [MASS/VOLUM E] IN SERUM OR PLASMA 10.0 mg/dL 8.8 - 10 01/14 Specimen Type: SERUM No comment entered. Ordering Provider: DUONG PAGAN Report Released Date/Time: Jan 14, 2025 12:42 PM Reporting Lab: [facility]ITALRPRATTVIL[facility] HOSPITALTRN [facility]ENTERUSE[address] [address] Performing Lab: [facility]ITALRDEKAL[facility] CENTERN [facility]ENTERUSE[address] [address] [facility] BASIC METABOLIC PANEL (non-fast ing) CREATININE [MASS/VOLUM E] IN SERUM OR PLASMA 1.69 mg/dL 0.72 - 1.25 01/14 H Specimen Type: SERUM No comment entered. Ordering Provider: DUONG PAGAN Report Released Date/Time: Jan 14, 2025 12:42 PM Reporting Lab: [address] [address] Performing Lab: [address] [address] [facility] BASIC METABOLIC PANEL (non-fast ing) GLOMERULAR FILTRATION RATE/1.73 SQ M.PREDICTED [VOLUME RATE/AREA] IN SERUM, PLASMA OR BLOOD BY CREATININE- BASED FORMULA (CKD-EPI 2020) 44 mL/min 60 01/14 L Specimen Type: SERUM No comment entered. Ordering Provider: DUONG PAGAN Report Released Date/Time: Jan 14, 2025 12:42 PM Reporting Lab: [address] [address] Performing Lab: [address] [address] [facility] VITAMIN D (25-OH) 25-HYDROXYV ITAMIN D3 [MASS/VOLUM E] IN SERUM OR PLASMA 13 ng/mL 20 - 50 11/27 L Specimen Type: SERUM No comment entered. Ordering Provider: JEANETTE MAJOR Report Released Date/Time: Oct 23, 2024 06:26 PM Reporting Lab: [address] [address] Performing Lab: [address] [address] [facility] LIPID PANEL FASTING CHOLESTEROL [MASS/VOLUM E] IN SERUM OR PLASMA 134 mg/dL 11/27 Specimen Type: SERUM No comment entered. Ordering Provider: JEANETTE MAJOR Report Released Date/Time: Oct 23, 2024 06:26 PM Reporting Lab: [facility]ITALRPRATTVILLE BAP[facility] HOSPITALTRN [facility] CENTERUSETS [address] [address] Performing Lab: [facility]PITALRDEKALB REGION[facility] MEDICAL CENTERN [facility] CENTERUSETS [address] [address] [place] LIPID PANEL FASTING TRIGLYCERID E [MASS/VOLUM E] IN SERUM OR PLASMA 205 mg/dL 0 - 150 11/27 H Specimen Type: SERUM No comment entered. Ordering Provider: JEANETTE MAJOR Report Released Date/Time: Oct 23, 2024 06:26 PM Reporting Lab: [facility] [address] [address] Performing Lab: [facility]ENTER[facility] [address] [place] LIPID PANEL FASTING CHOLESTEROL IN LDL [MASS/VOLUM E] IN SERUM OR PLASMA BY CALCULATION 63 mg/dL 0 - 129 11/27 Specimen Type: SERUM No comment entered. Ordering Provider: JEANETTE MAJOR Report Released Date/Time: Oct 23, 2024 06:26 PM Reporting Lab: [facility]PITALRDEKALB REGION[facility] MEDICAL CENTERN [address] [address] Performing Lab: [facility]ITALRPRATTVILLE BAPTIST HOSPITALTRN [facility] CENTERUSETS [address] [address] [place] LIPID PANEL FASTING CHOLESTEROL .TOTAL/CHOL ESTEROL IN HDL [MASS RATIO] IN SERUM OR PLASMA 4.5 11/27 Specimen Type: SERUM No comment entered. Ordering Provider: JEANETTE MAJOR Report Released Date/Time: Oct 23, 2024 06:26 PM Reporting Lab: [facility]PITALRDEKAL[facility]ICAL CENTERN [facility]ENTERUSE[address] [address] Performing Lab: [facility]ENTERUSE[address] [address] [place] LIPID PANEL FASTING CHOLESTEROL IN HDL [MASS/VOLUM E] IN SERUM OR PLASMA 30 mg/dL 40 - 60 11/27 L Specimen Type: SERUM No comment entered. Ordering Provider: JEANETTE MAJOR Report Released Date/Time: Oct 23, 2024 06:26 PM Reporting Lab: [facility]PITALRPRATTVILLE BAPTIST HOSPITALTRN [place] [facility] [address] [facility] [address] Performing Lab: [facility]ITALRPRATTVILLE BAPTIST HOSPITALTRN [place] [facility] [address] [facility] [address] [place] FERRITIN FERRITIN [MASS/VOLUM E] IN SERUM OR PLASMA 243 ng/mL 20 - 300 11/27 Specimen Type: SERUM No comment entered. Ordering Provider: JEANETTE MAJOR Report Released Date/Time: Oct 23, 2024 06:26 PM Reporting Lab: [facility]PITALRL TRN [place] [address] [address] Performing Lab: [facility]PITALRDEKALB [facility]ION[facility] MEDICAL CENTERN [facility]ENTERUSE[address] [address] [place] IRON & TIBC PANEL IRON BINDING CAPACITY [MASS/VOLUM E] IN SERUM OR PLASMA 372 ug/dL 204 - 475 11/27 Specimen Type: SERUM No comment entered. Ordering Provider: JEANETTE MAJOR Report Released Date/Time: Oct 23, 2024 06:26 PM Reporting Lab: [facility]ITALRPRATTVILLE BAP[facility] HOSPITALTRN [place] [address] [address] Performing Lab: [facility]ITALRPRATTVILLE BAP[facility] HOSPITALTRN [facility] CENTERUSETS [address] [address] [place] IRON & TIBC PANEL IRON [MASS/VOLUM E] IN SERUM OR PLASMA 83 ug/dL 40 - 160 11/27 Specimen Type: SERUM No comment entered. Ordering Provider: JEANETTE MAJOR Report Released Date/Time: Oct 23, 2024 06:26 PM Reporting Lab: [facility]ITALRPRATTVILLE BAPTIST HOSPITALTRN [place] [address] [address] Performing Lab: [facility]ITALRPRATTVILLE BAP[facility]OSPITALTRN [place] [address] [address] [place] IRON & TIBC PANEL IRON/IRON BINDING CAPACITY.TO WILL [MASS RATIO] IN SERUM OR PLASMA 22.3 20.0 - 50.0 11/27 Specimen Type: SERUM No comment entered. Ordering Provider: JEANETTE MAJOR Report Released Date/Time: Oct 23, 2024 06:26 PM Reporting Lab: [facility]ITALRL TRN [place] [address] Performing Lab: [facility] [address] [address] [place] IRON & TIBC PANEL TRANSFERRIN [MASS/VOLUM E] IN SERUM OR PLASMA 282 mg/dL 200 - 360 11/27 Specimen Type: SERUM No comment entered. Ordering Provider: JEANETTE MAJOR Report Released Date/Time: Oct 23, 2024 06:26 PM Reporting Lab: [facility] [address] [address] Performing Lab: [facility] [address] [address] [place] CBC LEUKOCYTES [#/VOLUME] IN BLOOD BY AUTOMATED COUNT 8.24 10*3/u L 4.50 - 11.00 11/27 Specimen Type: BLOOD No comment entered. Ordering Provider: JEANETTE MAJOR Report Released Date/Time: Oct 23, 2024 06:26 PM Reporting Lab: [facility] [address] [address] Performing Lab: [facility] [address] [address] [place] CBC ERYTHROCYTE S [#/VOLUME] IN BLOOD BY AUTOMATED COUNT 5.33 10*6/u L 4.23 - 5.66 11/27 Specimen Type: BLOOD No comment entered. Ordering Provider: JEANETTE MAJOR Report Released Date/Time: Oct 23, 2024 06:26 PM Reporting Lab: [facility] [address] [address] Performing Lab: [facility] [address] [address] [place] CBC HEMOGLOBIN [MASS/VOLUM E] IN BLOOD 17.0 g/dL 12.8 - 17 11/27 Specimen Type: BLOOD No comment entered. Ordering Provider: JEANETTE MAJOR Report Released Date/Time: Oct 23, 2024 06:26 PM Reporting Lab: [facility] [address] [address] Performing Lab: [facility]ITALRL [facility] [place] [facility] [address] [facility] [address] [place] CBC HEMATOCRIT [VOLUME FRACTION] OF BLOOD BY AUTOMATED COUNT 49.8 39.2 - 50.4 11/27 Specimen Type: BLOOD No comment entered. Ordering Provider: JEANETTE MAJOR Report Released Date/Time: Oct 23, 2024 06:26 PM Reporting Lab: [facility] [place] [facility] [address] [facility] [address] Performing Lab: [facility] [place] [facility] [address] [facility] [address] [place] CBC MCV [ENTITIC VOLUME] BY AUTOMATED COUNT 93.4 fL 82 - 99 11/27 Specimen Type: BLOOD No comment entered. Ordering Provider: JEANETTE MAJOR Report Released Date/Time: Oct 23, 2024 06:26 PM Reporting Lab: [facility] [place] [facility] [address] [facility] [address] Performing Lab: [facility] [place] [facility] [address] [facility] [address] [place] CBC MCHC [MASS/VOLUM E] BY AUTOMATED COUNT 34.1 g/dL 30.8 - 35.1 11/27 Specimen Type: BLOOD No comment entered. Ordering Provider: JEANETTE MAJOR Report Released Date/Time: Oct 23, 2024 06:26 PM Reporting Lab: [facility]RL [facility]N [facility] CENTERUSETS [address] [address] Performing Lab: [facility] [place] [address] [address] [place] CBC PLATELETS [#/VOLUME] IN BLOOD BY AUTOMATED COUNT 213 10*3/u L 140 - 360 11/27 Specimen Type: BLOOD No comment entered. Ordering Provider: JEANETTE MAJOR Report Released Date/Time: Oct 23, 2024 06:26 PM Reporting Lab: [facility]RL [facility]ENTERUSE[address] [address] Performing Lab: [facility] [place] [address] [address] [place] CBC ERYTHROCYTE DISTRIBUTIO N WIDTH [RATIO] BY AUTOMATED COUNT 13.1 12.0 - 16.0 11/27 Specimen Type: BLOOD No comment entered. Ordering Provider: JEANETTE MAJOR Report Released Date/Time: Oct 23, 2024 06:26 PM Reporting Lab: [address] [address] Performing Lab: [address] [address] [place] CBC MCH [ENTITIC MASS] BY AUTOMATED COUNT 31.9 pg 26.2 - 32.6 11/27 Specimen Type: BLOOD No comment entered. Ordering Provider: JEANETTE MAJOR Report Released Date/Time: Oct 23, 2024 06:26 PM Reporting Lab: [address] [address] Performing Lab: [address] [address] [place] HEMOGLOBI N A1C PANEL HEMOGLOBIN A1C/HEMOGLO BIN.TOTAL IN BLOOD BY HPLC 6.4 4.0 - 5.6 11/27 H Specimen Type: BLOOD Comment: Values obtained from A1C measurement s can vary. For atypical A1C assays, a reported value of 7.0 could actually be between 6.72 and 7.28 if measured by a reference method. A reported value of 9.0 could actually be between 8.73 and 9.27. Ref: http://www. ngsp.org/[place] Pdata.asp Ordering Provider: JEANETTE MAJOR Report Released Date/Time: Oct 23, 2024 06:26 PM Reporting Lab: [address] [address] Performing Lab: [address] [address] [place] TSH THYROTROPIN [UNITS/VOLU ME] IN SERUM OR PLASMA 2.44 u[IU]/ mL 0.35 - 5.00 11/27 Specimen Type: SERUM No comment entered. Ordering Provider: JEANETTE MAJOR Report Released Date/Time: Oct 23, 2024 06:26 PM Reporting Lab: [facility]ITALRPRATTVILLE B[facility] HOSPITALTRN [facility]ENTERUSE[address] [address] Performing Lab: [facility]ITALRL TRN [facility] CENTERUSETS [address] [address] [place] MICROALBU MIN CREATININ E RATIO PANEL MICROALBUMI N/CREATININ E [MASS RATIO] IN URINE 528.6 mg/g 0 - 29.9 11/27 H Specimen Type: URINE No comment entered. Ordering Provider: JEANETTE MAJOR Report Released Date/Time: Oct 23, 2024 06:26 PM Reporting Lab: [facility]ITALRPRATTVILLE BAP[facility]OSPITALTRN [facility]ENTERUSE[address] [address] Performing Lab: [facility]ITALRPRATTVILLE B[facility]OSPITALTRN [facility]ENTERUSE[address] [address] [place] MICROALBU MIN CREATININ E RATIO PANEL MICROALBUMI N [MASS/VOLUM E] IN URINE 76.5 mg/dL 11/27 Specimen Type: URINE No comment entered. Ordering Provider: JEANETTE MAJOR Report Released Date/Time: Oct 23, 2024 06:26 PM Reporting Lab: [facility]ITALRPRATTVILLE B[facility] HOSPITALTRN [address] [address] Performing Lab: [facility]ITALRPRATTVIL[facility]OSPITALTRN [facility]ENTERUSE[address] [address] [place] MICROALBU MIN CREATININ E RATIO PANEL CREATININE [MASS/VOLUM E] IN URINE 144.73 mg/dL 11/27 Specimen Type: URINE No comment entered. Ordering Provider: JEANETTE MAJOR Report Released Date/Time: Oct 23, 2024 06:26 PM Reporting Lab: [facility]ITALRPRATTVIL[facility]OSPITALTRN [facility]ENTERUSE[address] [address] Performing Lab: [facility]ITALRDEKALB [facility] CENTERN [facility]ENTERUSE[address] [address] [place] Vital Signs Combined list of inpatient and outpatient Vital Signs from Department of Defense and Veterans Affairs, ranging from 12 months to all on record, depending upon the facility. Vital Sign Value Date Comments Source WEIGHT 227.8 01/13/2025 15:42:05 [place] [facility] BMI 36 kg/m2 01/13/2025 15:42:05 [place] WEIGHT 230.2 01/06/2025 15:15:03 [place] [facility] BMI 36 kg/m2 01/06/2025 15:15:03 [place] [facility] WEIGHT 232.2 12/30/2024 13:00:00 [place] [facility] BMI 36 kg/m2 12/30/2024 13:00:00 [place] [facility] WEIGHT 234 12/23/2024 15:32:49 [place] [facility] BMI 37 kg/m2 12/23/2024 15:32:49 [place] [facility] SYSTOLIC BLOOD PRESSURE 113 12/18/19 25 11:20:00 [facility] DIASTOLIC BLOOD PRESSURE [id number] 025 11:20:00 [facility] PULSE 64 12/17/2024 11:20:00 [facility] Encounters Combined list of: 1) Encounters from Department of Veterans Affairs facilities going backup to the last 18 months, not all [facility] inpatient encounters are included; 2) Encounters from the Department of Defense facilities going backup to 280 months. Location Location Details Encounter Type Encounter Number Reason For Visit Attending Provider ADM Date DC Date Status Disposition Source [facility] Outpatient [facility]counter [id number] 09/17 [facility]counter [id number] 12/24 [facility] [id number] 03/14 [facility] [facility] En[facility] [id number] 03/14 [facility] Outpatient Encounter [id number] 03/17 [facility] [place] OFF[place] O/P NEW [place] 60 MIN [id number] 1BY. 28 Diagnos is: ICD-10- CM M71.20 [place] l cyst of poplite al space [Macias] , unspeci fied knee THERESA MAJOR NDRA C 04/03 [place] [facility] IMMUNIZATI ON ADMIN EACH ADD [id number] 1. WALLACE COON 04/03 [facility] Outpatient Encounter [id number] 1.04/06 [facility] [place] O/P EST MOD 30 MIN [id number] 1BY. 45 Diagnos is: ICD-10- CM E66.9 Obesity , unspeci fied THERESA MAJOR NDRA C 05/06 [place] [facility] Outpatient Encounter [id number] 1.05/06 [facility] Outpatient Encounter [id number] 1.07/31 [facility] OFF/OP EST JANUARY X REQ PHY/QHP [id number] Diagnos is: ICD-10- CM Z23 Encount er for immuniz GISELLE [place] [facility] Outpatient Encounter [id number] [facility] Outpatient Encounter [id number] 09/26 [facility] En[facility] [id number] 09/26 [facility] En[facility] [id number] 09/29 [facility] En[facility] [id number] 10/21 [facility] [place] O/P EST MOD 30 MIN [id number] Diagnos is: ICD-10- CM J01.10 Acute frontal sinusit is, unspeci THERESA Roy C [place] [facility] Encounter [id number] 10/21 [facility] [place] [facility] BHV IVNTJ GRP EA ADDL [id number] Diagnos is: ICD-10- CM E66.812 Obesity , class 2 ROBYN PETTIT RA 11/25 [place] [facility] [place] Outpatient Encounter [id number] 11/26 [place] [facility] Encounter [id number] 11/26 [facility] [place] [id number] Diagnos is: ICD-10- CM E66.812 Obesity , class 2 NIKOLAS MARCOS P 11/27 [place] [facility] Out[facility] Encounter [id number] 12/02 [facility] Outpatient Encounter [id number] 12/02 [facility] [place] [facility] PT EDUCATION NOC GROUP [id number] Diagnos is: ICD-10- CM E66.812 Obesity , class 2 LARIVIERE, NIXON A 12/09 [place] [facility] [place] MTMS BY PHARM ADDL 15 MIN [id number] Diagnos is: ICD-10- CM E78.2 Mixed hyperli pidemia GRACY PAGAN A 12/10 [place] PT EDUCATION NOC GROUP [id number] Diagnos is: ICD-10- CM E66.812 Obesity , class 2 LARIVIERE, NIXON A 12/16 [place] [facility] Outpatient Encounter [id number] 12/17 [facility] [place] OFF/OP EST JANUARY X REQ PHY/QHP [id number] Diagnos is: ICD-10- CM I10 Essenti al (primar y) hyperte GISELLE Mohamud 12/17 [place] [facility] BHV IVNTJ GRP EA ADDL [id number] Diagnos is: ICD-10- CM E66.812 Obesity , class 2 PRASHANTNICKCARLSON RA 12/23 [place] [facility] [place] [facility] EDUCATION [id number] Diagnos is: ICD-10- CM E66.812 Obesity , class 2 LARIVIERE, NIXON A 12/30 [place] [facility] [place] [facility] V IVNTJ GRP EA ADDL [id number] Diagnos is: ICD-10- CM E66.812 Obesity , class 2 ROBYN PETTIT RA 01/06 [place] [facility] [place] [facility] BHV IVNTJ GRP EA ADDL [id number] Diagnos is: ICD-10- CM E66.812 Obesity , class 2 PRASHANTHROBYN CARDENAS RA 01/13 [place] [facility] [place] MTMS BY PHARM ADDL 15 MIN [id number] Diagnos is: ICD-10- CM E66.9 Obesity , unspeci fied GRACY PAGAN 01/14 [facility] [place] Social History Combined list of available smoking, tobacco, and other social history from Department of Defense and Veterans Affairs facilities. Social History Type Response Date Comment Sourc e Tobacco smoking status ORIS VA-TOBACCO NEVER USED 04/03/2024 [facility] [place] [facility] History of tobacco use VA-TOBACCO NEVER USED 06/25/2019 [facility] [place] [facility] Plan of Care List of future care activities from Department of Veterans Affairs facilities. Additional future care activities may be listed in the Assessment and Plan section. Date/Time Care Activity Care Activity Detail Facili ty 01/30/2025 AMBULATORY - MEDICINE AMBULATORY - MEDICI [facility]
--- OUTSIDE RECORDS SUMMARY | 2025-01-16 07:57 | XMS_ITS | Encounter Summary ---
Author Name [facility] Address [address] [place] [address] Care Team Providers Care Packer Inspector Name Role Phone SABINA MAJOR Primary Care [...] Suero's Name Patient's Relationship to Policy Suero [facility] MEDICAID [facility] Sep 17, 2023 01 [id number] RAIZA BURCH PATIENT Selected Encounter This section includes the information on record at [place] for the Encounter. Date/Time Encounter Type Encounter Description Reason Pro vider Source Nov 26, 2024 11:00 AM Outpatient Encounter PRIMARY CARE/MEDICINE [facility] Encounter Template Text not used by [place] Plan of Treatment: Future Appointments (+ 6 months) and Future Tests (+/- 45 days) The Plan of Treatment section includes future care activities for the patient from all [place] treatmentfacilities. This section includes future appointments and future orders which are active, pending or scheduled. Future Appointments This section includes appointments that were scheduled to occur 6 months from the date of the Encounter, up to a maximum of 20 appointments. The data comes from all [place] treatment facilities. Appointment Date/Time Appointment Type Appointme nt Facility Name Nov 27, 2024 09:15 AM AMBULATORY - NONE [place] [facility] [place] [facility] Dec 09, 2024 01:00 PM AMBULATORY - NONE [place] [facility] Dec 10, 2024 10:30 AM AMBULATORY - MEDICINE [facility] [place] [facility] Dec 10, 2024 03:40 PM AMBULATORY - NONE [facility] [place] [facility] Dec 16, 2024 01:00 PM AMBULATORY - NONE [place] [facility] Dec 17, 2024 11:00 AM AMBULATORY - MEDICINE [place] [facility] [place] [facility] Dec 23, 2024 01:00 PM AMBULATORY - NONE [place] [facility] Dec 30, 2024 01:00 PM AMBULATORY - NONE [place] [facility] Jan 06, 2025 01:00 PM AMBULATORY - NONE [place] [facility] Jan 13, 2025 01:00 PM AMBULATORY - NONE [place] [facility] Jan 14, 2025 12:30 PM AMBULATORY - MEDICINE [place] [facility] [place] [facility] January 30, 2025 01:00 PM AM[place]ULATORY - MEDICINE [place] Mar 17, 2025 02:00 PM AMBULATORY - MEDICINE [place] [facility] [place] [facility] Apr 07, 2025 10:00 AM [facility] Active, Pending, and Scheduled Orders This section includes a listing of several types of active, pending, and scheduled orders, including clinic medications orders, diagnostic test orders, procedure orders and consult orders; where the start date of the order is 45 days before the date of the Encounter or 45 days after the date of theEncounter. The data comes from all [facility] facilities. Test Date/Time Test Type Test Details Facility Name Dec 10, 2024 12:21 PM Consult Order OPTOMETRY/ [facility] OUTPT Cons Exchange Floor Manager's Choice [facility] Lab Results: +/- 30 days of the encounter This section includes the Chemistry and Hematology Lab Results on record with [facility] for the patient. Radiology Reports and Pathology Reports are provided separately, in subsequent sections. Lab Results This section contains the Chemistry/Hematology Results that were resulted 30 days before or 30 daysafter the date of the Encounter. Date/Time Source Result Type Result - Unit Interpretation Reference Range Specimen Type Comment Nov 27, 2024 09:42 AM [place] LIPID PANEL FASTING SERUM Specimen Ty pe: SERUM No comment entered. Ordering Provider: SABINA MAJOR Report Released Date/Time: Oct 23, 2024 06:26 PM Reporting Lab: [address] [address] Performing Lab: [address] [address] CHOLESTEROL 134 mg/dL TRIGLYCERIDE 205 mg/dL H 0-150 LDL calculated 63 mg/dL 0-129 CHOL/HDL 4.5 HDL CHOLESTEROL 30 mg/dL L 40-60 Nov 27, 2024 09:42 AM [place] VITAMIN D (25-OH) SERUM Specimen Type : SERUM No comment entered. Ordering Provider: SABINA MAJOR Report Released Date/Time: Oct 23, 2024 06:26 PM Reporting Lab: [address] [address] Performing Lab: [address] [address] VITAMIN D (25-OH) 13 ng/mL L 20-50 Nov 27, 2024 09:42 AM [place] FERRITIN SERUM Sp ecimen Type: SERUM No comment entered. Ordering Provider: SABINA MAJOR Report Released Date/Time: Oct 23, 2024 06:26 PM Reporting Lab: [address] [address] Performing Lab: [address] [address] FERRITIN 243 ng/mL 20-300 Nov 27, 2024 09:42 AM [place] IRON & TIBC PANEL SERUM Specimen Type : SERUM No comment entered. Ordering Provider: SABINA MAJOR Report Released Date/Time: Oct 23, 2024 06:26 PM Reporting Lab: [address] [address] Performing Lab: [address] [address] TIBC 372 ug/dL 204-475 IRON 83 ug/dL 40-160 Transferrin Saturation 22.3 20.0-50.0 Transferrin (TRF) 282 mg/dL 200-360 Nov 27, 2024 09:42 AM [place] HEMOGLOBIN A1C PANEL BLOOD Specimen T ype: [...] Oct 23, 2024 06:26 PM Reporting Lab: [address] [address] Performing Lab: [address] [address] HEMOGLOBIN A1C 6.4 H 4.0-5.6 Nov 27, 2024 09:42 AM [place] CBC BLOOD Sp ecimen Type: BLOOD No comment entered. Ordering Provider: SABINA MAJOR Report Released Date/Time: Oct 23, 2024 06:26 PM Reporting Lab: [address] [address] Performing Lab: [address] [address] WBC 8.24 10*3/uL 4.50-11.00 RBC 5.33 10*6/uL 4.23-5.66 HGB 17.0 g/dL 12.8-17 HCT 49.8 39.2-50.4 MCV 93.4 fL 82-99 MCHC 34.1 g/dL 30.8-35.1 PLT 213 10*3/uL 140-360 RDW-CV 13.1 12.0-16.0 MCH 31.9 pg 26.2-32.6 Nov 27, 2024 09:42 AM [place] TSH SERUM Sp ecimen Type: SERUM No comment entered. Ordering Provider: SABINA MAJOR Report Released Date/Time: Oct 23, 2024 06:26 PM Reporting Lab: [address] [place] [address] Performing Lab: [facility] [address] [address] TSH 2.44 u[IU]/mL 0.35-5.00 Nov 27, 2024 09:42 AM [place] MICROALBUMIN CREATININE RATIO PANEL URINE Specimen Type: URINE No comment entered. Ordering Provider: SABINA MAJOR Report Released Date/Time: Oct 23, 2024 06:26 PM Reporting Lab: [facility] [address] [address] Performing Lab: [address] [address] MICROALBUMIN/CREATININE RATIO 528.6 mg/g H 0-29.9 MICROALBUMIN,QUANTITATIVE 76.5 mg/dL RR UNAVAIL CREATININE URINE 144.73 mg/dL Nov 27, 2024 09:42 AM [place] BASIC METABOLIC PANEL (fasting) SERUM Specimen Type: SERUM No comment entered. Ordering Provider: SABINA MAJOR Report Released Date/Time: Oct 23, 2024 06:26 PM Reporting [facility]: [facility] [address] [address] Performing Lab: [facility] [address] [address] UREA NITROGEN 24 mg/dL 7-25 GLUCOSE 104 mg/dL H 65-100 SODIUM 139 mmol/L 135-145 POTASSIUM 4.7 mmol/L 3.5-5.0 CHLORIDE 105 mmol/L 100-110 CO2 23 meq/L 20-30 CALCIUM 10.2 mg/dL 8.5-10.2 CREATININE, Serum 1.54 mg/dL H 0.50-1.40 eGFR(CKD-EPI 2020) 50 mL/min L >60 Nov 27, 2024 09:42 AM [place] LIVER FUNCTION SERUM Specimen Type: SERUM No comment entered. Ordering Provider: SABINA MAJOR Report Released Date/Time: Oct 23, 2024 06:26 PM Reporting Lab: [address] [address] Performing Lab: [address] [address] PROTEIN,TOTAL 7.9 g/dL 6.0-8.3 ALBUMIN 4.2 g/dL 3.5-5.0 ALKALINE PHOSPHATASE 75 U/L 40-150 AST 27 U/L 5-34 ALT 43 U/L BILIRUBIN, TOTAL 0.5 mg/dL 0.2-1.2 Encounter Notes: All associated encounter notes This section contains the clinical notes associated to the Encounter. Date/Time Encounter Note(s) Provider Source Nov 26, 2024 12:59 PM ADMINISTRATIVE NOT E: LOCAL TITLE: ADMINISTRATIVE NOTE STANDARD TITLE: ADMINISTRATIVE NOTE DATE OF NOTE: NOV 26, 2024@12:59 ENTRY DATE: NOV 26, 2024@12:59:18 AUTHOR: GISELLE NGUYEN EXP COSIGNER: URGENCY: STATUS: COMPLETED did not come for his RN appt today. /jose/ GISELLE NGUYEN RN REGISTERED NURSE Signed: 11/26/2024 12:59 Receipt Acknowledged By: 11/26/2024 14:55 /jose/ JANIE BOWMAN [employer] GISELLE NGUYEN [place]
--- NOTE | 2025-05-21 08:36 | HO.ANESPROP2 ---
Documented by User: Zarina Sow NP 05/21/25 08:41 HPI - Anesthesia Eval Consult details Narrative: 64yo M for Colonoscopy [facility] Active Problems Active Problems: All Active Problems Tear of medial meniscus of right knee (Acute) Past Medical History Medical History (Updated 05/22/25 @ 07:39 by Silke Wallace, JARET) Inguinal hernia IgA nephropathy Prostate cancer HLD (hyperlipidemia) Gout Arthritis HTN (hypertension) Surgical History Surgical History (Updated 05/22/25 @ 07:39 by Silke Wallace RN) Status post inguinal hernia repair H/O prostatectomy Social History Social History (Updated 11/30/20 @ 08:12 by Mag Jj [facility]) Advance Directives: No Advance Directives Information Provided: Yes Current occupational status: employed Current occupation: [employer] in [employer] Allergies Allergy/AdvReac Type Severity Reaction Status Date / Time No Known Allergies Allergy Mild NOT Verified 05/22/25 07:37 APPLICABLE Home Medications ?Medication ?Instructions ?Recorded ?Confirmed ?Last Taken ?Type allopurinol 100 mg tablet 100 mg PO DAILY 05/22/25 05/22/25 Unknown History amlodipine 5 mg tablet 5 mg PO DAILY 05/22/25 05/22/25 05/22/25 History famotidine 20 mg tablet 20 mg PO DAILY 05/22/25 05/22/25 Unknown History lisinopril 20 mg tablet 20 mg PO DAILY 05/22/25 05/22/25 05/22/25 History simvastatin 20 mg tablet 20 mg PO DAILY 05/22/25 05/22/25 Unknown History Assessment and Plan Assessment Anesthesia Assessment: Chart Reviewed Documented by User: Veronica Matthews MD 05/22/25 07:46 [facility] Past Medical History Medical History (Updated 05/22/25 @ 07:39 by Silke Wallace RN) Inguinal hernia IgA nephropathy Prostate cancer HLD (hyperlipidemia) Gout Arthritis HTN (hypertension) Family History Family history of problems with anesthesia: No Surgical History Surgical History (Updated 05/22/25 @ 07:39 by Silke Wallace RN) Status post inguinal hernia repair H/O prostatectomy History of Problems with Anesthesia: No Social History Social History (Updated 11/30/20 @ 08:12 by NICOLE Bravo) Advance Directives: No Advance Directives Information Provided: Yes Current occupational status: employed Current occupation: [employer] in [employer] Meds Allergies Allergy/AdvReac Type Severity Reaction Status Date / Time No Known Allergies Allergy Mild NOT Verified 05/22/25 07:37 APPLICABLE Home Medications ?Medication ?Instructions ?Recorded ?Confirmed ?Last Taken ?Type allopurinol 100 mg tablet 100 mg PO DAILY 05/22/25 05/22/25 Unknown History amlodipine 5 mg tablet 5 mg PO DAILY 05/22/25 05/22/25 05/22/25 History famotidine 20 mg tablet 20 mg PO DAILY 05/22/25 05/22/25 Unknown History lisinopril 20 mg tablet 20 mg PO DAILY 05/22/25 05/22/25 05/22/25 History simvastatin 20 mg tablet 20 mg PO DAILY 05/22/25 05/22/25 Unknown History Exam Airway Mallampati Class: II (loose bottom teeth) TM Dist: >3cm Neck ROM: Full Heart: rrr Lungs: cta Assessment and Plan Assessment Anesthesia Assessment: Anesthesia Plan Discussed Final Anesthetic Review Family History of Problems with Anesthesia: No History of Problems with Anesthesia: No NPO: Yes ASA Class: II Final Preanesthetic Review: No Changes in Pt Med Stat, Meds/Allgs Chart Reviewed and Consent Obtained/Reviewed Patient Risk: Low Procedure Risk: Low Anesthetic Plan Anesthetic Plan: MAC: Disposition: Standard PACU
[2025-05-22 07:40] VITALS: BP 148/86; PULSE 71; RESP 12; TEMP 36.6; O2SAT 95; BMI 33.8
[2025-05-22] MEDS: Lactated Ringers 1,000 ML 100 ML IVCONT (07:43)
[2025-05-22 09:53] VITALS: BP 96/57; PULSE 67; RESP 16; TEMP 36.3; O2SAT 93
--- NOTE | 2025-05-22 09:58 | P.BOP_ITS ---
Brief Operative Note Date of Service: 05/22/25 Pre-op diagnosis: Screening Post-op diagnosis: other (Colon polyps) Procedure: Colonoscopy to the cecum and TI with cold snare polypectomy x 2, and hot snare polypectomy(Rectal polyp) Surgeon: Mino Thomson MD Anesthesia: MAC Was an Science Professor used for this Procedure?: No Estimated blood loss (mL): 2.0 Pathology: other (A. Polyp at 40cm B. Cecal polyp C. Rectal polyp(hot snare)) Condition: stable Disposition: PACU
[2025-05-22 10:08] VITALS: BP 103/70; PULSE 60; RESP 16; O2SAT 94
[2025-05-22 10:23] VITALS: BP 115/72; PULSE 58; RESP 16; TEMP 36.4; O2SAT 94
--- NOTE | 2025-05-22 10:49 | OP_ITS ---
DATE OF SERVICE: 05/22/2025 SURGEON: Mino Thomson MD INDICATIONS: The patient presents for followup of personal history of tubular adenoma of the colon, family history of colon cancer, and colorectal cancer screening. Full consent was obtained from him for this, including risks of bleeding and perforation. PREOPERATIVE DIAGNOSIS: POSTOPERATIVE DIAGNOSIS: PROCEDURE PERFORMED: Colonoscopy to cecum and terminal ileum with cold snare polypectomy x 2 and hot snare polypectomy of rectal polyp. ESTIMATED BLOOD LOSS: COMPLICATIONS: ANESTHESIA: Medication used, monitored anesthesia care. ASSISTANTS: SPECIMENS: PREOPERATIVE DIAGNOSES: Colorectal cancer screening, personal history of tubular adenomas of the colon, and family history of colon cancer. POSTOPERATIVE DIAGNOSES: Colorectal cancer screening, personal history of tubular adenomas of the colon, and family history of colon cancer, colon polyps, diverticulosis, and internal hemorrhoids. DESCRIPTION OF PROCEDURE: The patient was placed in the left lateral decubitus position. The digital rectal exam revealed no abnormalities. The [employer] video pediatric colonoscope was entered into the rectum and advanced easily to the cecum. Once in the cecum, I did identify cecal pouch with appendiceal orifice and a normal-appearing ileocecal valve. The terminal ileum was cannulated and appeared normal. The scope withdrawn back in the colon. The entire cecum and ileocecal valve were well visualized. In the cecum was an approximately 5 mm polyp, which was removed by cold snare polypectomy and recovered by suction. The polypectomy site appeared clean, without any sign of residual polyp nor significant bleeding. The scope was slowly withdrawn assessing all mucosal surfaces carefully. Preparation was excellent. At 40 cm was a flat, approximately 5 mm polyp, which was removed by cold snare polypectomy and recovered by suction. The polypectomy site appeared clean, without any sign of residual polyp nor significant bleeding. In the distal rectum was an approximately 10 mm grossly adenomatous polyp, which was removed by hot snare polypectomy and recovered by suction. The polypectomy site appeared clean, without any sign of residual polyp nor bleeding. In the retroflexed position some small internal hemorrhoids were noted as well. The remainder of the rectum appeared normal. I did not visualize any other polyps, colitis, nor angiodysplasia. There was a mild amount of sigmoid diverticulosis. The scope was withdrawn from the patient. He tolerated the procedure well and was returned to the recovery area in stable condition. IMPRESSION: 1. Colon polyps. 2. Diverticulosis. 3. Internal hemorrhoids. PLAN: The results of the pathology will be checked. I would recommend a repeat colonoscopy in 5 years for further screening. He was advised not to use any aspirin nor NSAIDs for 1 week. MD ISAAC Jennings/BARBARA / [phone] MTDD
== END 2025-05-22 10:49 | disposition home or self-care (01) ==
PROVIDERS: PCP Physician Assistant; Visit Provider Internal Medicine
PROC: 0DJD8ZZ Inspection of Lower Intestinal Tract, Via Natural or Artificial Opening Endoscopic (ICD-10-PCS; CPT 45378; principal; 2025-05-22 08:30)
DX: Z12.11 Encounter for screening for malignant neoplasm of colon (principal); Z86.0101 Personal history of adenomatous and serrated colon polyps; Z80.0 Family history of malignant neoplasm of digestive organs; D12.0 Benign neoplasm of cecum; D12.5 Benign neoplasm of sigmoid colon; D12.8 Benign neoplasm of rectum; K57.30 Diverticulosis of large intestine without perforation or abscess without bleeding; K64.8 Other hemorrhoids; I10 Essential (primary) hypertension; N02.B9 Other recurrent and persistent immunoglobulin A nephropathy; Z85.46 Personal history of malignant neoplasm of prostate; Z90.79 Acquired absence of other genital organ(s); E78.5 Hyperlipidemia, unspecified; M10.9 Gout, unspecified; Z87.442 Personal history of urinary calculi; Z79.899 Other long term (current) drug therapy
CPT/HCPCS: 45385; 88305; J2003; J2704